=== PATIENT | male | born 1935 | race Caucasian/White ===

== ENCOUNTER 2019-11-21 21:35 | Inpatient (IN) | payer OTHER ==
[~2019-11-21] VITALS: Ht 175.3 cm; Wt 100.7 kg
[2019-11-21] MEDS ORDERED: DICL100G16 TP (22:09)
[2019-11-21] MEDS ORDERED: ACET-73 PO (22:09)
--- NOTE | 2019-11-21 23:00 | NUR ---
PT IS MEDICALLY CLEARED BY DR MONAHAN, CALL FOR BED DONE 141B
--- NOTE | 2019-11-21 23:01 | NUR ---
[address]:GD AND HARM TO OTHERS PT TO BE ADMITTED UNDER DR. FERNANDEZ/ SYED
--- NOTE | 2019-11-21 23:28 | NUR ---
BELONGINGS LIST DONE W/ ERLVN PT REFUSED TO DISCLOSE CONTENTS OF BAG KEPT CALM AND COMFORTABLE
--- NOTE | 2019-11-22 01:06 | NUR ---
HAND OFF AND SBAR GIVEN TO HARMAN
[2019-11-22] MEDS ORDERED: ACETAMINOPHEN 325 MG TABLET PO PRN (01:30)
[2019-11-22] MEDS ORDERED: BLOOD SUGAR DIAGNOSTIC 1 EACH STRIP VI ONE (01:30)
[2019-11-22] MEDS ORDERED: MAG HYDROX/AL HYDROX/SIMETH 30 ML LIQUID UDC PO PRN (01:30)
--- NOTE | 2019-11-22 01:38 | NUR ---
PT BELONGINGS ACCOUNTED FOR BY 2ER RNS TRANSPORTED VIA GURNEY [place] [facility]
[2019-11-22 01:40] VITALS: BP 144/78
[2019-11-22] MEDS: LORAZEPAM 1 MG TABLET PO PRN (02:14)
[2019-11-22] MEDS ORDERED: MAGNESIUM HYDROXIDE 30 ML LIQUID UDC PO PRN (02:15)
--- NOTE | 2019-11-22 02:49 | NUR ---
GPS: Admitted to unit earlier an 84 yr.old male under the care and supervision of / in fair condition. Pt. is on a 72 hour hold for GD. Pt.became aggressive towards staff and was disorganized and tangential,unable to provide a meaningful answer during interview,per hold. Pt.is AO x3. Pleasant,cooperative during admission process. Skin assessment done/inventory list completed. Unit rules explained. Pt's advisement /pt's rights handbook provided. Ativan 1mg given PO as requested by pt. Safety emphasized. Re-assured prn.
--- NOTE | 2019-11-22 07:14 | NUR ---
GPS/NSG Patient visible on unit this a.m. became aggressive towards staff was disorganized and tangential, staff attempted to go over pt's belongings one more time however patient became belligerent, paranoid, suspicious and confused, demanding things he stated were taken from him at the other hospital. Patient was redirected however patient would not follow direction, continued to escalate, staff was unable to effectively communicate with patient, he refused to comply with staff suggestions regarding belongings. Will continue to monitor for increased agitation and be alert for unit and staff safety.
[2019-11-22 07:30] VITALS: BP 147/78
[2019-11-22] MEDS: GABAPENTIN 100 MG CAPSULE PO SCH ×3 (10:21→17:47)
[2019-11-22] MEDS: OLANZAPINE 2.5 MG TABLET PO SCH ×2 (10:21→20:18)
--- NOTE | 2019-11-22 13:29 | NUR ---
Social Work/Initial Discharge Plan: Patient currently resides at home [address] [place] [address] [place] [address] with his Shalini Salomon ([phone]). Patient will return back home when ready for discharge. SW will continue to work with patient, family, and MD to ensure a safe and proper discharge plan.
[2019-11-22] MEDS ORDERED: INSULIN REGULAR, HUMAN 300 UNIT/3 ML VIAL SQ PRN (13:30)
[2019-11-22] MEDS ORDERED: DEXTROSE 50% 50 ML DISP.SYRIN IV PRN (13:30)
[2019-11-22 16:00] VITALS: BP 124/80
[2019-11-22 16:21] LABS: *BILIRUBIN,URIN NEGATIVE (NEGATIVE); *BLOOD, URINE NEGATIVE (NEGATIVE); *CLARITY,URINE CLEAR (CLEAR); *COLOR,URINE YELLOW (YELLOW); *KETONES,URINE NEGATIVE (NEGATIVE); *UROBILINOGEN,URINE 0.2 E.U./dl (NORMAL); LEUKOCYTE ESTERASE ,URINE NEGATIVE (NEGATIVE); NITRITE, URINE NEGATIVE (NEGATIVE); UGLUCOSE NEGATIVE (NEGATIVE)
[2019-11-22] MEDS: BLOOD SUGAR DIAGNOSTIC 1 EACH STRIP VI SCH ×2 (17:12→20:28)
[2019-11-22 21:29] VITALS: BP 143/86
[2019-11-22] MEDS: ZOLPIDEM 5 MG TABLET PO PRN (22:47)
[2019-11-23] MEDS: BLOOD SUGAR DIAGNOSTIC 1 EACH STRIP VI SCH ×5 (06:42→21:00)
[2019-11-23 07:30] VITALS: BP 130/66
[2019-11-23 07:41] LABS: EOSINOPHILS # (AUTO) 0.1 K/uL (0.0-0.7); EOSINOPHILS % (AUTO) 3.1 % (0.0-7.0); HEMATOCRIT 42.7 % (36.7-47.1); HEMOGLOBIN 14.2 g/dL (12.5-16.3); LYMPHOCYTES # (AUTO) 1.8 K/uL (20.0-40.0); MEAN CORPUSCULAR HEMOGLOBIN 32.4 uug (23.8-33.4); MEAN CORPUSCULAR HGB CONC 33 g/dL (32.5-36.3); MEAN CORPUSCULAR VOLUME 97.7 fL (73.0-96.2); MONOCYTES # (AUTO) 0.6 K/uL (2.0-10.0); MONOCYTES % (AUTO) 15.3 % (0.0-11.0); NEUTROPHILS # (AUTO) 1.4 K/uL (1.8-8.9); NEUTROPHILS % (AUTO) 35.6 % (38.5-71.5); PLATELET COUNT (AUTO) 154 K/uL (152-348); RED BLOOD CELL COUNT(AUTO) 4.37 MIL/uL (4.06-5.63)
[2019-11-23 07:43] LABS: EOSINOPHILS % (MANUAL) 3 % (0-8); MONOCYTES % (MANUAL) 15 % (2-10); NEUTROPHILS % (MANUAL) 37 % (42-75)
[2019-11-23 07:44] LABS: LYMPHOCYTES % (MANUAL) 45 % (20-40)
[2019-11-23] MEDS ORDERED: OLANZAPINE 2.5 MG TABLET PO SCH (09:00)
[2019-11-23] MEDS: GABAPENTIN 100 MG CAPSULE PO SCH ×3 (09:32→17:35)
[2019-11-23] MEDS: OLANZAPINE 5 MG TABLET PO SCH ×2 (09:34→20:04)
--- NOTE | 2019-11-23 10:42 | NUR ---
Social Work/UR Note: Oracle Erp Developer faxed patient's Consultation, History and Physical, Progress Note, Medication List and Labs to [employer] FAX# [phone]. Spoke with Lizzy ([phone]) to confirm fax information. Lizzy stated that this documentation writer will receive a fax back with authorization # information. Addendum: 11/23/19 at 1324 by TERI REYES Authorization for 7 days beginning 11/22/2019. REF# [id number]
--- NOTE | 2019-11-23 10:46 | NUR ---
Social Work/Firearms Report ([employer]): Radiology Manager completed and submitted a [employer] firearms report for 5150 grave disability certification. A copy of report has been placed in patient chart.
[2019-11-23 11:40] LABS: BILIRUBIN,TOTAL 0.9 mg/dL (0.2-1.0); CREATININE 0.9 mg/dL (0.6-1.3); MAGNESIUM 1.7 mg/dL (1.8-2.4); PHOSPHOROUS 3.1 mg/dL (2.5-4.9); POTASSIUM 4.1 mmol/L (3.5-5.1); TOTAL PROTEIN, SERUM 7.5 g/dL (6.4-8.2)
--- NOTE | 2019-11-23 13:30 | NUR ---
Gps/Overhead Irrigator Patient argumentative, about his hold, claimed he's being detained under illegal dold. Tries to redirect patient reviewed papers for his original hold, offered ativan 1 mg. po , difficulty redirecting patient, hangs out by the Nurses station, and continued questioning his hold.
[2019-11-23] MEDS: LORAZEPAM 1 MG TABLET PO PRN (13:38)
[2019-11-23] MEDS ORDERED: OLANZAPINE 10 MG VIAL IM ONE (14:15)
--- NOTE | 2019-11-23 14:58 | NUR ---
GPS: PATIENT SOMEWHAT AGITATED, PRE OCCUPIED ABOUT HIS HOLD, VERBALIZING THAT ITS ILLEGAL, PATIENT ARGUMENTATIVE WITH THE STAFF, UNABLE TO REDIRECT, PATIENT THEN ASK IF HE WILL CONTINUE HIS BEHAVIOR HE WILL NOT HAVE AN EARLIER DISCHARGE PLAN, PATIENT THEN DE ESCALATE, AND WENT BACK TO HIS ROOM
[2019-11-23 16:45] VITALS: BP 124/72
--- NOTE | 2019-11-23 18:02 | NUR ---
Gps/Crop Setting Out Machine Operator- Patient was able to talk to his in a calm manner, appeared to be pleasant with her on the phone, no yelling spells noted.
[2019-11-23 21:10] VITALS: BP 145/81
[2019-11-23] MEDS: ZOLPIDEM 5 MG TABLET PO PRN (22:51)
[2019-11-24] MEDS: LORAZEPAM 1 MG TABLET PO PRN (00:58)
[2019-11-24] MEDS: ACETAMINOPHEN ES 500 MG TABLET PO PRN ×2 (00:58→22:51)
[2019-11-24] MEDS: BLOOD SUGAR DIAGNOSTIC 1 EACH STRIP VI SCH ×4 (06:40→20:51)
[2019-11-24 07:30] VITALS: BP 149/96
[2019-11-24] MEDS: OLANZAPINE 5 MG TABLET PO SCH ×2 (08:56→20:51)
[2019-11-24] MEDS: GABAPENTIN 300 MG CAPSULE PO SCH ×3 (08:57→16:45)
[2019-11-24] MEDS ORDERED: GABAPENTIN 100 MG CAPSULE PO SCH (09:00)
--- NOTE | 2019-11-24 11:57 | NUR ---
Social Work/Discharge Planning: Soaking Room Operator spoke with patient's , Shalini Salomon ([phone]) regaridng arranging transportation for the patient for his discharge tomorrow morning. Shalini stated that she will arrange for a Taxi to fruit or nut picker the patient tomorrow at 11am, however, after speaking to her again today she stated that the service is not available. This brief writer gave Shalini another Taxi service ([phone]) and stated she would need to call and schedule and provide this brief writer with a confirmation.
[2019-11-24 15:15] VITALS: BP 119/72
[2019-11-24 20:34] VITALS: BP 137/72
--- NOTE | 2019-11-25 05:14 | NUR ---
PATIENT ASLEEP BUT EASILY AROUSABLE, PATIENT COMPLAIN OF BACK PAIN MEDICATED WITH TYLENOL ORDERED WITH EFFECTIVE RESULTS. PATIENT SLEPT MOST OF THE NIGHT, PATIENT HAS NO BEHAVIORAL PROBLEM NOTED, CONT TO MONITOR.
[2019-11-25] MEDS: BLOOD SUGAR DIAGNOSTIC 1 EACH STRIP VI SCH ×4 (06:41→20:22)
[2019-11-25 07:30] VITALS: BP 143/72
[2019-11-25] MEDS: OLANZAPINE 5 MG TABLET PO SCH ×2 (08:38→20:53)
[2019-11-25] MEDS: GABAPENTIN 300 MG CAPSULE PO SCH ×3 (08:38→16:44)
--- NOTE | 2019-11-25 10:30 | NUR ---
Gps/Wool Mixer-While reviewing discharged instructions, patient started to get loud argumentative, difficulty redirecting patient , persevirating on hevery sinle words in the discharged instructions, requesting to write down names of staffs in the unit. Copies of discharged instructions provided but wants more copies. Noted to get loud , > anxious, hyperverbal , argues, labile, threatening behavior.
--- NOTE | 2019-11-25 11:28 | NUR ---
PT TO BE DISCHARGED TODAY AT THIS TIME. PT'S FRIEND "[place]" IN LOBBY RIGHT NOW WAITING FOR PT DISCHARGE AT THIS TIME. SPOKE TO PT'S CUAUHTEMOC, SHE STATED CARBURETOR MECHANIC "[place]" WILL PROVIDE TRANSPORTATION, NOT TAXI SERVICE.
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
--- NOTE | 2019-11-25 11:55 | NUR ---
SPOKE TO PT'S CUAUHTEMOC, INFORMED OF DISCHARGE CANCELLATION.
--- NOTE | 2019-11-25 11:56 | NUR ---
FRIEND [place] LEFT UNIT AT THIS TIME.
[2019-11-25] MEDS ORDERED: OLANZAPINE 10 MG VIAL IM ONE (12:00)
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
--- NOTE | 2019-11-25 12:46 | NUR ---
Gps/Pharmaceutical Compounding Supervisor- Refused neurontin due at 1300, per patient" no more oral medications, will not take anything from you"
--- NOTE | 2019-11-25 12:46 | NUR ---
PT REFUSING MEDICATIONS AT THIS TIME. ALSO REFUSING LUNCH, STATING "I KNOW YOU GUYS ARE POISONING MY FOOD."
--- NOTE | 2019-11-25 13:45 | NUR ---
Gps/Bar Manager- Reoffered food tray , refused, claimed does not want to eat .
--- NOTE | 2019-11-25 14:06 | NUR ---
Gps/Grinder Brake Lining- Continue to monitor behavior, and needs.
[2019-11-25] MEDS ORDERED: MAGNESIUM OXIDE 400 MG TABLET PO ONE (15:30)
[2019-11-25 16:00] VITALS: BP 137/76
--- NOTE | 2019-11-25 16:30 | NUR ---
Gps/Follow Up Specialist- Patient was able to let staff check his blood sugar , accu-check 53, asymtomatic, offered 2 120 ml cranberry juice as requested, anayeli crackers also was given.
--- NOTE | 2019-11-25 16:34 | NUR ---
Gps/Optical Fabrication Technician- Patient requested sandwich , ok to give, R/T BS 53, also patient refused to eat lunch, paranoid, staff are putting something in his food.
--- NOTE | 2019-11-25 17:45 | NUR ---
Gp[s/Acrobatic Dancer- Phyllis , called was able to talked to patient, appeared calmer, and cooperative this pm. Refused to double check blood sugar.Patient ate sandwich , pudding and 2 juices(240 ml) cranberry
[2019-11-25] MEDS: LORAZEPAM 1 MG TABLET PO PRN (20:12)
[2019-11-25 21:16] VITALS: BP 164/80
--- NOTE | 2019-11-25 22:00 | NUR ---
received to care, watching tv with peers, pleasant upon approach. PRN ativan was given for anxiety, at 2011. he then took his routine medications. as of 2199, he appears to be asleep. no distress noted.
[2019-11-25 22:30] VITALS: BP 155/88
--- NOTE | 2019-11-26 06:00 | NUR ---
slept 4.75 hours total. continues to sleep. no distress noted.
[2019-11-26] MEDS: BLOOD SUGAR DIAGNOSTIC 1 EACH STRIP VI SCH (06:19)
[2019-11-26 07:30] VITALS: BP 141/70
[2019-11-26] MEDS: OLANZAPINE 5 MG TABLET PO SCH ×2 (08:54→21:00)
[2019-11-26] MEDS: GABAPENTIN 300 MG CAPSULE PO SCH ×3 (08:56→17:34)
[2019-11-26] MEDS: LORAZEPAM 1 MG TABLET PO PRN (12:07)
--- NOTE | 2019-11-26 14:30 | NUR ---
Gps/Manager English- Irritable, labile mood , but had been redirectable, claimed , he needs to get ready and his is coming to take him home. Reoriented patient ,no plan to be discharge today, and Psychiatrist to see him tomorrow, patient verbalized understanding
[2019-11-26 16:00] VITALS: BP 126/76
--- NOTE | 2019-11-26 18:55 | NUR ---
Gps/Undercover Operator- Per DISSOLVER OPERATOR when checking patient in the dinning room , he was not responding, no sign of any resp, distress, , b/p 56/30 HR 58, BS checked by EVANGELIST Montague 119 Rapid response was called , assisted to treasure-chair, reclined chair, lower ext. elevated, b/p rechecked 103/58 02 sat 92%. EKG was done, taken to ER to be evaluated. Patient awake, alert, no distress..
--- NOTE | 2019-11-26 18:55 | NUR ---
PT NOTED SITTING IN DINING ROOM CHAIR, UNRESPONSIVE AT THIS TIME. V/S ARE FOLLOWS: O2 SAT 96%, PULSE 58, BP 56/30, RESP 15, BLOOD SUGAR 119. RAPID RESPONSE CALLED AT THIS TIME.
--- NOTE | 2019-11-26 19:04 | NUR ---
PAGED [employer] GROUP AT THIS TIME. STATED WILL PAGE DR. REHMAN STAT.
--- NOTE | 2019-11-26 19:07 | NUR ---
PT REMAINS UNRESPONSIVE. TAKEN TO ROOM IN ZULEIMA CHAIR. BP NOW AT 103/58.
--- NOTE | 2019-11-26 19:10 | NUR ---
CALLED DR. LYNCH, LEFT MESSAGE TO CALL BACK.
--- NOTE | 2019-11-26 19:14 | NUR ---
DR. LYNCH CALLED BACK WITH ORDER TO SEND PT TO ER AT THIS TIME. RAPID RESPONSE CLEARED. DR. RANDHAWA PAGED, AWAITING CALL BACK.
--- NOTE | 2019-11-26 19:21 | NUR ---
DR. RANDHAWA CALLED BACK. NOTIFIED OF PT CONDITION. ORDERED TO CONTINUE HOLD.
--- NOTE | 2019-11-27 08:52 | NUR ---
Social Work/Discharge Note: Patient was discharged to Telemetry Unit with diagnosis for Syncope on 12/14/19. Patient resides at home [address] [place] [address] ([phone]). Patents Shalini Salomon ([phone]) is aware and agreeable of discharge plans. Patient is alert and oriented x3-4, denies suicidal and homicidal ideation, and was aware and agreeable with discharge plans. Patient presented with agitated mood and congruent affect. Upon discharge back home, patient will be following up with a new Psychiatrist Dr. Kirsten Rodgers [address], [place] [address] ([phone]) and has a follow up appointment scheduled on Thursday December 12, 2019 at 2:00pm. Patient will also be following up with his Primary Care Physician Dr. Jay Goldstein [address], [place] [address] ([phone]) and has a follow up appointment scheduled on November 10:30am. Patient was also provided with mental health resources including [facility] Crisis Line ([phone]) and the National Suicide Prevention Lifeline (428-895-7647).
[2019-12-14] MEDS ORDERED: TAMS-3 PO (11:55)
[2019-12-14] MEDS ORDERED: ATOR10TA PO (11:55)
[2019-12-14] MEDS ORDERED: FLUD0.1T3 PO (11:55)
[2019-12-14] MEDS ORDERED: GABA-534 PO (11:55)
[2019-12-14] MEDS ORDERED: FINA5TAB11 PO (11:55)
[2019-12-14] MEDS ORDERED: OLAN5TAB3 PO (11:55)
== END 2019-11-26 22:00 | disposition short-term general hospital (02) | DRG 885 ==
LOC: EDSEX 21:39 → ER 21:39 → GPS 11-22 01:18
PROVIDERS: ADMIT Psychiatry & Neurology Psychiatry; ATTEND Registered Nurse
DX: F31.64 Bipolar disorder, current episode mixed, severe, with psychotic features (principal); E44.1 Mild protein-calorie malnutrition; E66.9 Obesity, unspecified; E11.9 Type 2 diabetes mellitus without complications; I10 Essential (primary) hypertension; Z68.32 Body mass index [BMI] 32.0-32.9, adult; E83.42 Hypomagnesemia; R55 Syncope and collapse
CPT/HCPCS: 36415; 70030-TC; 83735; 84100; 85025; 87086; 93005; A4663; A9150; J1815; J2358

== ENCOUNTER 2019-11-26 19:16 | Inpatient (IN) | payer OTHER ==
[~2019-11-26] VITALS: Ht 175.3 cm; Wt 103.4 kg
--- NOTE | 2019-11-26 19:20 | NUR ---
Dr. Marcelino at bedside for MSE.
--- NOTE | 2019-11-26 19:39 | NUR ---
Xray at bedside.
[2019-11-26 19:42] LABS: BASOPHILS % (AUTO) 0.8 % (0.0-2.0); EOSINOPHILS # (AUTO) 0.1 K/uL (0.0-0.7); EOSINOPHILS % (AUTO) 2.4 % (0.0-7.0); HEMATOCRIT 42.5 % (36.7-47.1); HEMOGLOBIN 14.1 g/dL (12.5-16.3); LYMPHOCYTES # (AUTO) 1.3 K/uL (20.0-40.0); LYMPHOCYTES % (AUTO) 29.8 % (20.5-51.5); MEAN CORPUSCULAR HEMOGLOBIN 32.4 uug (23.8-33.4); MEAN CORPUSCULAR HGB CONC 33 g/dL (32.5-36.3); MONOCYTES # (AUTO) 0.6 K/uL (2.0-10.0); MONOCYTES % (AUTO) 13.5 % (0.0-11.0); NEUTROPHILS # (AUTO) 2.3 K/uL (1.8-8.9); NEUTROPHILS % (AUTO) 53.5 % (38.5-71.5); PLATELET COUNT (AUTO) 150 K/uL (152-348); RED BLOOD CELL COUNT(AUTO) 4.33 MIL/uL (4.06-5.63); WHITE BLOOD COUNT (AUTO) 4.3 K/uL (3.6-10.2)
[2019-11-26 19:51] LABS: CREATININE 1.1 mg/dL (0.6-1.3); POTASSIUM 4.9 mmol/L (3.5-5.1)
--- NOTE | 2019-11-26 19:56 | NUR ---
Pt out of ER for CT.
[2019-11-26 20:04] LABS: BILIRUBIN,DIRECT 0.1 mg/dL (0.0-0.2); BILIRUBIN,TOTAL 0.4 mg/dL (0.2-1.0); TOTAL PROTEIN, SERUM 7.9 g/dL (6.4-8.2)
--- NOTE | 2019-11-26 20:20 | NUR ---
Pt back to ER from CT.
--- NOTE | 2019-11-26 20:41 | NUR ---
Pt provided urine sample, sent to lab.
[2019-11-26 20:58] LABS: *BILIRUBIN,URIN NEGATIVE (NEGATIVE); *CLARITY,URINE CLEAR (CLEAR); *COLOR,URINE YELLOW (YELLOW); *KETONES,URINE NEGATIVE (NEGATIVE); *UROBILINOGEN,URINE 0.2 E.U./dl (NORMAL); LEUKOCYTE ESTERASE ,URINE NEGATIVE (NEGATIVE); NITRITE, URINE NEGATIVE (NEGATIVE); UGLUCOSE NEGATIVE (NEGATIVE)
[2019-11-26 21:01] LABS: *BLOOD, URINE NEGATIVE (NEGATIVE)
--- NOTE | 2019-11-26 22:04 | NUR ---
Called [facility] to page Dr. Robledo.
--- NOTE | 2019-11-26 22:09 | NUR ---
Dr. Marcelino on panel call with Dr. Robledo. Patient accepted for admission to [facility], diagnosis: syncope.
--- NOTE | 2019-11-26 22:15 | NUR ---
Report given to Mayuri BLANCA Tele.
[2019-11-26] MEDS ORDERED: ONDANSETRON 4 MG/2 ML VIAL IV PRN (22:30)
[2019-11-26] MEDS ORDERED: Z GUARD REMEDY PASTE 57 GM TUBE TOP PRN (22:30)
[2019-11-26] MEDS ORDERED: IV NS 1000 ML 1,000 ML IV ONE (22:30)
[2019-11-26] MEDS ORDERED: MAGNESIUM HYDROXIDE 30 ML LIQUID UDC PO PRN (22:30)
--- NOTE | 2019-11-26 22:45 | NUR ---
PATIENT IS AN 84 YEAR OLD MALE ADMITTED TO TELEMETRY FROM EMERGENCY DEPT. WITH DIAGNOSIS OF HYPOTENSION. AO X 2. BLOOD PRESSURE UPON ADMISSION WAS 96/69. PATIENT IN BED WITH FALL AND SAFETY PRECAUTIONS IN PLACE. IV IN RIGHT HAND FLUSHING, PATENT, AND INTACT. SITTER AT BEDSIDE. ATRIAL FLUTTER ON THE TELE MONITOR WITH HEART RATE IN THE 70s. WILL CONTINUE TO MONITOR PATIENT.
[2019-11-26 23:03] VITALS: BP 96/69
[2019-11-27 00:40] VITALS: BP 129/85
--- NOTE | 2019-11-27 00:47 | NUR ---
PATIENT IS AGITATED AND BECOMING AGGRESSIVE WITH STAFF. PATIENT REORIENTED MULTIPLE TIMES BUT UNSUCCESSFUL. CONTACTED DR. AUGUSTIN WHO GAVE ORDER FOR ATIVAN 0.5MG Q6 HRS.
[2019-11-27] MEDS: LORAZEPAM 2 MG/1 ML VIAL IV PRN ×2 (01:04→22:53)
[2019-11-27 06:49] LABS: CREATININE 0.9 mg/dL (0.6-1.3); MAGNESIUM 1.7 mg/dL (1.8-2.4); PHOSPHOROUS 3.6 mg/dL (2.5-4.9); POTASSIUM 4.2 mmol/L (3.5-5.1)
[2019-11-27 06:55] LABS: BASOPHILS % (AUTO) 0.6 % (0.0-2.0); EOSINOPHILS # (AUTO) 0.1 K/uL (0.0-0.7); EOSINOPHILS % (AUTO) 2.3 % (0.0-7.0); LYMPHOCYTES # (AUTO) 1.4 K/uL (20.0-40.0); MEAN CORPUSCULAR HEMOGLOBIN 32.6 uug (23.8-33.4); MEAN CORPUSCULAR HGB CONC 33 g/dL (32.5-36.3); MONOCYTES # (AUTO) 0.7 K/uL (2.0-10.0); MONOCYTES % (AUTO) 15.4 % (0.0-11.0); NEUTROPHILS # (AUTO) 2.1 K/uL (1.8-8.9); NEUTROPHILS % (AUTO) 48.7 % (38.5-71.5); PLATELET COUNT (AUTO) 156 K/uL (152-348); RED BLOOD CELL COUNT(AUTO) 4.29 MIL/uL (4.06-5.63); WHITE BLOOD COUNT (AUTO) 4.3 K/uL (3.6-10.2)
--- NOTE | 2019-11-27 07:30 | NUR ---
Patient resting in bed comfortably with no signs of distress patient with 1:1 sitter; patient will continue to be monitored through out shift.
--- NOTE | 2019-11-27 08:21 | NUR ---
Social Work/Discharge Note: Patient was discharged back home on Wednesday11/25/[address] [place] [address] [place] [address] ([phone]). Patents Shalini Salomon ([phone]) is aware and agreeable with discharge plans and will be providing with Taxi transportation of her own and will be scheduling it for milk pickup truck driver at 11:00am. Patient is alert and oriented x4, denies suicidal and homicidal ideation, and is aware and agreeable with discharge plan. Patient presents with normal mood and congruent affect. Patient will be following up with a new Psychiatrist Dr. Kirsten Rodgers [address], [place] [address] ([phone]) and has a follow up appointment scheduled on Thursday December 12, 2019 at 2:00pm. Patient will also be following up with his Primary Care Physician Dr. Jay Goldstein [address], [place] [address] ([phone]) and has a follow up appointment scheduled on November 10:30am. Patient was also provided with mental health resources including [facility] Crisis Line ([phone]) and the National Suicide Prevention Lifeline (010-089-9081). Addendum: 11/27/19 at 0823 by TERI REYES Disregard Discharge Note
[2019-11-27 08:41] VITALS: BP 140/81
[2019-11-27] MEDS ORDERED: DEXTROSE 50% 50 ML DISP.SYRIN IV PRN (10:15)
[2019-11-27] MEDS: MAGNESIUM SULFATE/D5W 100 ML IV SCH ×2 (10:26→11:56)
[2019-11-27 11:34] LABS: LYMPHOCYTES % (MANUAL) 33 % (20-40); MONOCYTES % (MANUAL) 15 % (2-10); MYELOCYTES % 1 % (0-0); NEUTROPHILS % (MANUAL) 51 % (42-75)
[2019-11-27 11:45] VITALS: BP 113/71
[2019-11-27] MEDS: BLOOD SUGAR DIAGNOSTIC 1 EACH STRIP VI SCH ×3 (11:57→21:27)
[2019-11-27] MEDS: GABAPENTIN 100 MG CAPSULE PO SCH ×2 (13:11→17:44)
[2019-11-27 16:14] VITALS: BP 130/76
--- NOTE | 2019-11-27 19:15 | NUR ---
Patient with 1:1 sitter through out shift ; patient medication compliant ; patient with random bouts of mild anger but patient redirected; patient with stable vital signs. Report given to oncoming nurse.
[2019-11-27 20:55] VITALS: BP 139/78
[2019-11-27] MEDS: OLANZAPINE 5 MG TABLET PO SCH (21:27)
[2019-11-27] MEDS: ATORVASTATIN 10 MG TABLET PO SCH (21:27)
--- NOTE | 2019-11-27 22:28 | NUR ---
PATIENT HAS EPISODE OF RAPID V TACH 11 BEATS BUT UNSUSTAINABLE. PATIENT ALERT AWAKE, ASYMPTOMATIC, ASSISTED TO THE TOILET FOR BLADDER ELIMINATIONS. PATIENT HAS NO COMPLAIN OF CHEST PAIN, DIZZINESS, CONT TO MONITOR.
--- NOTE | 2019-11-27 23:32 | NUR ---
PATIENT HAS EPISODE OF ANXIETY WITH AGITATION, WANTS TO REARRANGE FURNITURE, REDIRECT PATIENT BUT NOT EFFECTIVE, OFFER FOOD AND JUICE TO DISTRACT PATIENT BUT NOT EFFECTIVE, ASSISTED PATIENT FOR BLADDER ELIMINATION. PATIENT WAS GIVEN ATIVAN IV ORDERED WITH EFFECTIVE RESULTS, PATIENT SEATS IN CHAIR QUITE, AND WATCHING TV, PATIENT HAS NO S/S OF ADVERSE REACTION FROM ATIVAN. CONT ON 1;1 SITTER FOR SAFETY.
[2019-11-28] VITALS (8 sets, daily range): BP systolic 130–154; BP diastolic 74–88
[2019-11-28] MEDS: HYDROCODONE/APAP 5-325MG TABLET PO PRN (03:36)
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
--- NOTE | 2019-11-28 06:15 | NUR ---
PAGED DR. FERNANDEZ TO NOTIFY MD REGARDING PATIENT INCREASED AGITATION, RESISTIVE TO CARE, YELLS AND THREATENING SITTER AND STAFF. PATIENT LISTEN AND FOLLOW TO MALE STAFF ONLY, REFUSED VITAL SIGNS, BLOOD SUGAR CHECK. PATIENT REFUSED TO BE VISUALLY CHECK, CONT 1;1 SITTER. UNABLE TO GIVE IV PRN ATIVAN DUE TO RESISTIVE TO CARE.
[2019-11-28 06:57] LABS: CARBON DIOXIDE 28 mmol/L (21-32); CHLORIDE 106 mmol/L (98-107); CREATININE 0.9 mg/dL (0.6-1.3); GLUCOSE 96 mg/dL (74-106); MAGNESIUM 1.8 mg/dL (1.8-2.4); PHOSPHOROUS 3.6 mg/dL (2.5-4.9); POTASSIUM 5.2 mmol/L (3.5-5.1); UREA NITROGEN, BLOOD 19 mg/dL (7-18)
[2019-11-28] MEDS: BLOOD SUGAR DIAGNOSTIC 1 EACH STRIP VI SCH ×5 (07:30→20:30)
--- NOTE | 2019-11-28 07:33 | NUR ---
patient very agitated and loud, verbally abusive and want to go out. called john lau.
--- NOTE | 2019-11-28 07:38 | NUR ---
patient refused blood sugar testing, gets agitated, asked lab staff for help but refused. endorsed to next shift.
--- NOTE | 2019-11-28 08:00 | NUR ---
CODE MARTINEZ CALLED FOR SEVERE AGITATION AND TRYING TO GET OUT OF ROOM, VERBALLY ABUSIVE
[2019-11-28] MEDS: LORAZEPAM 2 MG/1 ML VIAL IV PRN ×2 (08:01→22:53)
[2019-11-28] MEDS: GABAPENTIN 100 MG CAPSULE PO SCH (08:01)
[2019-11-28] MEDS: OLANZAPINE 5 MG TABLET PO SCH ×3 (08:01→16:57)
--- NOTE | 2019-11-28 08:01 | NUR ---
PRN ATIVAN GIVEN AND OBSERVED
[2019-11-28] MEDS ORDERED: OLANZAPINE 5 MG TABLET PO SCH (09:15)
[2019-11-28] MEDS: GABAPENTIN 300 MG CAPSULE PO SCH ×2 (12:01→16:57)
[2019-11-28] MEDS ORDERED: GABAPENTIN 100 MG CAPSULE PO SCH (13:00)
--- NOTE | 2019-11-28 14:00 | NUR ---
PATIENT REMAINS UNDER CONTROL FAR BEHAVIOR. 1:1 SITTER AT BEDSIDE SR ON MONITOR
[2019-11-28 15:35] LABS: BASOPHILS # (AUTO) 0.1 K/uL (0.0-8.0); BASOPHILS % (AUTO) 1.3 % (0.0-2.0); EOSINOPHILS # (AUTO) 0.1 K/uL (0.0-0.7); EOSINOPHILS % (AUTO) 3.2 % (0.0-7.0); HEMOGLOBIN 13.8 g/dL (12.5-16.3); LYMPHOCYTES # (AUTO) 1.2 K/uL (20.0-40.0); LYMPHOCYTES % (AUTO) 29.1 % (20.5-51.5); MEAN CORPUSCULAR HEMOGLOBIN 32.7 uug (23.8-33.4); MEAN CORPUSCULAR HGB CONC 34 g/dL (32.5-36.3); MEAN CORPUSCULAR VOLUME 97.1 fL (73.0-96.2); MONOCYTES # (AUTO) 0.8 K/uL (2.0-10.0); NEUTROPHILS % (AUTO) 47.4 % (38.5-71.5); PLATELET COUNT (AUTO) 156 K/uL (152-348); RED BLOOD CELL COUNT(AUTO) 4.23 MIL/uL (4.06-5.63); WHITE BLOOD COUNT (AUTO) 4.2 K/uL (3.6-10.2)
[2019-11-28 16:37] LABS: BAND % (MANUAL) 1 % (0-10); EOSINOPHILS % (MANUAL) 2 % (0-8); LYMPHOCYTES % (MANUAL) 31 % (20-40); MONOCYTES % (MANUAL) 15 % (2-10); NEUTROPHILS % (MANUAL) 51 % (42-75)
--- NOTE | 2019-11-28 17:55 | NUR ---
CONTINUE 5250 WITH 1;1 SITTER FOR GRAVELY DISABLED. PLAN DC TO MHU WHEN STABLE
[2019-11-28] MEDS: RIVAROXABAN 10 MG TABLET PO SCH (18:54)
--- NOTE | 2019-11-28 19:45 | NUR ---
RECEIVED PATIENT AWAKE IN BED. AO X 1-2. IV IN LEFT HAND 20G FLUSHING, PATENT, AND INTACT. 1:1 SITTER AT THE BEDSIDE. PATIENT CURRENTLY COOPERATIVE. NO SIGNS OF ACUTE DISTRESS. NO SHORTNESS OF BREATH NOTED. ATRIAL FLUTTER ON THE TELE MONITOR. SAFETY/ FALL PRECAUTIONS IN PLACE. WILL CONTINUE TO MONITOR APPROPRIATELY.
[2019-11-28] MEDS: ATORVASTATIN 10 MG TABLET PO SCH (20:12)
[2019-11-29] VITALS (9 sets, daily range): BP systolic 65–142; BP diastolic 28–80
[2019-11-29] MEDS: LORAZEPAM 2 MG/1 ML VIAL IV PRN ×2 (04:43→21:25)
--- NOTE | 2019-11-29 06:16 | NUR ---
PATIENT SLEPT MINIMALLY THROUGHOUT THE NIGHT. 1:1 SITTER AT THE BEDSIDE. NO ACUTE CHANGE IN PATIENT CONDITION. VITAL SIGNS WITHIN NORMAL LIMITS. TOLERATED MEDICATIONS. ATRIAL FLUTTER ON THE TELE MONITOR WITH HEART RATE IN THE HIGH 50'S.
[2019-11-29] MEDS: BLOOD SUGAR DIAGNOSTIC 1 EACH STRIP VI SCH ×4 (06:42→21:18)
--- NOTE | 2019-11-29 08:00 | NUR ---
RECEIVED PATIENT IN BED RESTING WITH 1:1 SITTER AT BEDSIDE FOR SAFETY. NO SOB NOTED AT THIS TIME, NO C/O PAIN NOTED AT THIS TIME. IV INTACT AND PATENT. SAFETY AND COMFORT PROVIDED AT ALL TIMES. WILL CONTINUE TO MONITOR
[2019-11-29] MEDS: OLANZAPINE 5 MG TABLET PO SCH ×3 (09:19→17:21)
[2019-11-29] MEDS: LISINOPRIL 5 MG TABLET PO SCH (09:19)
[2019-11-29] MEDS: GABAPENTIN 300 MG CAPSULE PO SCH ×3 (09:19→17:21)
--- NOTE | 2019-11-29 15:00 | NUR ---
PATIENT RECEIVED FROM ROBERT RN AND REPORT RECEIVED. PATIENT IN STABLE CONDITION UPON ARRIVAL. AOX1 TO SELF. ABLE TO AMBULATE WITH ASSIST. PATIENT WAS WALKED TO THE ACTIVITY ROOM WHERE HE SAT DOWN ON A CHAIR AND WHEN THE CORRECTIONS CADET CAME TO ASSESS HIS BLOOD PRESSURE PATIENT BECAME UNRESPONSIVE TO NAME, TOUCH OR STERNAL RUB. B/P AT THAT TIME WAS 65/32 WITH HR 47. BS WAS ASSESSED AND IT WAS 111. ESOL TEACHER WAS CALLED AND AARON THE KENNEL TECHNICIAN WAS MADE AWARE OF THE SITUATION. PLAN IS TO TRANSFER BACK TO M/S UNIT WITH CORRUGATOR OPERATOR.
--- NOTE | 2019-11-29 16:19 | NUR ---
Rapid response called: patient became unresponsive, hypotensive and bradycardic. Notified Aiyana Michele NP. Cancel discharge, continue care in telemetry unit.
--- NOTE | 2019-11-29 17:00 | NUR ---
patient admitted back to telemetry from MHU for further eval.
[2019-11-29] MEDS: RIVAROXABAN 10 MG TABLET PO SCH (17:23)
--- NOTE | 2019-11-29 18:28 | NUR ---
Patient in bed with HOB elevated with 1:1 sitter. No sob noted. No c/o pain at this time. Safety and comfort provided. will continue to monitor
[2019-11-29] MEDS: ATORVASTATIN 10 MG TABLET PO SCH (20:49)
[2019-11-29] MEDS: ACETAMINOPHEN 325 MG TABLET PO PRN (21:43)
[2019-11-30 00:29] VITALS: BP 133/76
[2019-11-30 04:00] VITALS: BP 125/71
[2019-11-30] MEDS: HYDROCODONE/APAP 5-325MG TABLET PO PRN (06:10)
[2019-11-30 06:23] LABS: CREATININE 0.8 mg/dL (0.6-1.3); MAGNESIUM 1.8 mg/dL (1.8-2.4); PHOSPHOROUS 3.7 mg/dL (2.5-4.9); POTASSIUM 4.1 mmol/L (3.5-5.1)
[2019-11-30 06:29] LABS: BASOPHILS % (AUTO) 0.4 % (0.0-2.0); EOSINOPHILS # (AUTO) 0.1 K/uL (0.0-0.7); EOSINOPHILS % (AUTO) 2.8 % (0.0-7.0); HEMOGLOBIN 14.1 g/dL (12.5-16.3); LYMPHOCYTES # (AUTO) 1.5 K/uL (20.0-40.0); LYMPHOCYTES % (AUTO) 38.9 % (20.5-51.5); MEAN CORPUSCULAR HEMOGLOBIN 32.1 uug (23.8-33.4); MEAN CORPUSCULAR HGB CONC 33 g/dL (32.5-36.3); MEAN CORPUSCULAR VOLUME 98.1 fL (73.0-96.2); MONOCYTES # (AUTO) 0.6 K/uL (2.0-10.0); MONOCYTES % (AUTO) 14.6 % (0.0-11.0); NEUTROPHILS # (AUTO) 1.7 K/uL (1.8-8.9); NEUTROPHILS % (AUTO) 43.3 % (38.5-71.5); PLATELET COUNT (AUTO) 159 K/uL (152-348); RED BLOOD CELL COUNT(AUTO) 4.39 MIL/uL (4.06-5.63); WHITE BLOOD COUNT (AUTO) 3.8 K/uL (3.6-10.2)
[2019-11-30] MEDS: BLOOD SUGAR DIAGNOSTIC 1 EACH STRIP VI SCH ×4 (06:35→20:15)
--- NOTE | 2019-11-30 06:51 | NUR ---
Patient slept for 6hrs. A&Ox1 noted w/ disorganized thoughts and hard to redirect. Cont on 5250 hold w/ 1:1 sitter for safety. Patient was given PRN Ativan 0.5mg IV last night d/t agitation. Safety measures observed. All needs attended. Will endorse accordingly
--- NOTE | 2019-11-30 07:40 | NUR ---
RECEIVED PATIENT IN BED AWAKE, AOX1. 1:1 SITTER AT BED. NO SIGNS OF DISTRESS AT THIS TIME. PATIENT DENIES PAIN AT THIS TIME. RIGHT HAND PERIPHERAL LINE INTACT AND FLUSHED. ALL NEEDS MET AT THIS TIME. SAFETY AND FALL PRECAUTIONS IN PLACE CALL LIGHT IN REACH. BED IN LOW AND LOCKED POSITION. WILL CONTINUE TO MONITOR.
[2019-11-30 07:52] VITALS: BP 145/72
[2019-11-30] MEDS: GABAPENTIN 300 MG CAPSULE PO SCH ×3 (08:13→17:07)
[2019-11-30] MEDS: LISINOPRIL 5 MG TABLET PO SCH (08:13)
[2019-11-30] MEDS: OLANZAPINE 5 MG TABLET PO SCH ×3 (08:14→17:07)
[2019-11-30 11:20] VITALS: BP 113/69
[2019-11-30 15:45] VITALS: BP 121/66
[2019-11-30] MEDS: RIVAROXABAN 10 MG TABLET PO SCH (17:08)
--- NOTE | 2019-11-30 19:46 | NUR ---
PATIENT IN BED AWAKE, AOX1. 1:1 SITTER AT BED. NO SIGNS OF DISTRESS AT THIS TIME. PATIENT DENIES PAIN AT THIS TIME. THERE IS INCREASED AGITATION AND PATIENT IS TRYING TO GET OUT OF BED BUT SITTER ABLE TO REDIRECT. RIGHT HAND PERIPHERAL LINE INTACT AND FLUSHED. ALL NEEDS MET AT THIS TIME. SAFETY AND FALL PRECAUTIONS IN PLACE CALL LIGHT IN REACH. BED IN LOW AND LOCKED POSITION. WILL CONTINUE TO MONITOR.
[2019-11-30] MEDS: LORAZEPAM 2 MG/1 ML VIAL IV PRN (19:52)
[2019-11-30 20:00] VITALS: BP 139/97
[2019-11-30] MEDS: ACETAMINOPHEN 325 MG TABLET PO PRN (20:07)
[2019-11-30] MEDS: ATORVASTATIN 10 MG TABLET PO SCH (20:07)
[2019-11-30] MEDS ORDERED: LORAZEPAM 2 MG/1 ML VIAL IV ONE (22:15)
--- NOTE | 2019-11-30 22:50 | NUR ---
Patient noted w/ episode of agitation and wants to go home. Patient is A&Ox1 w/ disorganized thoughts and hard to re-direct. w/ 1:1 sitter for safety. PRN Ativan 0.5mg IV given around 1951 but w/ no effect. Called non destructive testing technician, Lynsey LOGAN w/ n.o for Ativan 1mg IV x 1 dose. Will continue to monitor patient
[2019-12-01] VITALS: BP 107/67
[2019-12-01 04:00] VITALS: BP 137/65
[2019-12-01] MEDS: LORAZEPAM 2 MG/1 ML VIAL IV PRN (05:38)
--- NOTE | 2019-12-01 06:35 | NUR ---
Patient slept on and off. Noted w/ severe agitation and disorganized thoughts. PRN Ativan 0.5mg IV given x 2 this shift. Cont w/ 1:1 sitter for safety. All needs attended. Will endorse accordingly
[2019-12-01] MEDS: BLOOD SUGAR DIAGNOSTIC 1 EACH STRIP VI SCH ×4 (06:48→21:31)
[2019-12-01 07:30] VITALS: BP 138/76
--- NOTE | 2019-12-01 07:30 | NUR ---
Patient in Bed, awake and verbally responsive with confusion. no signs of distress noted. No SOB. No complain of Pain or discomfort. patient with 1:1 sitter for safety. Will continue to monitor.
[2019-12-01] MEDS: GABAPENTIN 300 MG CAPSULE PO SCH ×3 (08:03→17:00)
[2019-12-01] MEDS: OLANZAPINE 5 MG TABLET PO SCH ×3 (08:04→21:00)
[2019-12-01] MEDS: LISINOPRIL 5 MG TABLET PO SCH (08:04)
[2019-12-01] MEDS: HYDROCODONE/APAP 5-325MG TABLET PO PRN (08:04)
[2019-12-01] MEDS ORDERED: OLANZAPINE 5 MG TABLET PO SCH (08:30)
[2019-12-01] MEDS ORDERED: OLANZAPINE 5 MG TABLET PO ONE (09:15)
[2019-12-01] MEDS ORDERED: IV NS 1000 ML 1,000 ML IV STA (14:40)
--- NOTE | 2019-12-01 14:50 | NUR ---
Patient sitting on the chair, unable to wake him up. Vital sign 88/56 P 60 R 20 T 98.1. Paged rapid response. Assisted patient to Bed, Still not responding. Seen and examined by DESMOND jaimes with New Order of [place] Bolus. Will continue to monitor.
[2019-12-01 15:00] VITALS: BP 114/48
--- NOTE | 2019-12-01 15:15 | NUR ---
Seen and examined by Dr. Ordonez, patient in Bed, arousable to Pain stimuli, current Vital signs BP 94/59 P 71 R 20 T 98.1. Will continue to monitor.
[2019-12-01] MEDS: FLUDROCORTISONE ACETATE 0.1 MG TABLET PO SCH (17:00)
[2019-12-01] MEDS: RIVAROXABAN 10 MG TABLET PO SCH (18:00)
--- NOTE | 2019-12-01 18:00 | NUR ---
Patient in Bed, still asleep. No signs of distress noted. No SOB. No signs of pain or discomfort. DESMOND jaimes is aware that patient still sleeping but arousable to pain stimuli. DESMOND jaimes Ordered CT of Head and carotid with contrast, called Shalini and got a Telephone consent with 1RN witness. Will endorse to Oncoming Nurse.
--- NOTE | 2019-12-01 19:30 | NUR ---
Received patient in bed with 1:1 sitter at bedside. Patient is resting, able to arouse, but patient just moans, does not open eyes. Vitals WNL. Heplock on the right hand is intact and patent. Safety measures initiated. Will continue to monitor.
[2019-12-01 20:09] VITALS: BP 133/68
[2019-12-01] MEDS: ATORVASTATIN 10 MG TABLET PO SCH (21:00)
[2019-12-01] MEDS ORDERED: IOHEXOL 350 100 ML INFUS..BTL ONE (21:30)
[2019-12-01] MEDS ORDERED: SWABABLE VALVE TRANSFER SET EA MC ONE (21:30)
[2019-12-01] MEDS ORDERED: IV NORMAL SALINE 250 ML IV ONE (21:30)
--- NOTE | 2019-12-01 21:39 | NUR ---
Patient left for CTA in stable condition with 1:1 sitter. IV #18 on left forearm is intact and patent.
--- NOTE | 2019-12-01 22:25 | NUR ---
IV infiltrated before procedure started, inserted new IV on the right forearm #20 gauge with good back flow.
--- NOTE | 2019-12-01 22:35 | NUR ---
Patient returned from CT in stable condition. Held patients medications due to patient being lethargic. Patient mumbling in sleep but still does not open eyes, patient may aspirate. Will continue to monitor.
[2019-12-02 00:21] VITALS: BP 124/72
[2019-12-02] MEDS: LORAZEPAM 2 MG/1 ML VIAL IV PRN (00:29)
[2019-12-02] MEDS: HYDROCODONE/APAP 5-325MG TABLET PO PRN ×2 (01:45→05:58)
[2019-12-02] MEDS: ACETAMINOPHEN 325 MG TABLET PO PRN (04:05)
[2019-12-02 05:20] VITALS: BP 149/85
--- NOTE | 2019-12-02 06:07 | NUR ---
Patient has been trying to get out of bed, helped patient to restroom. Frequent redirection needed. Patient complaining of abdominal discomfort. Patient was able to urinate but very little. Performed bladder scanner with 840cc showing. Tried to insert straight cath x2 and there was resistance also noted bleeding. Informed Kt Chambers IT PROGRAMMER ANALYST and he said to give some [place] to try and relax him and try again in an hour to insert a Saunders catheter. Will endorse to next shift.
[2019-12-02] MEDS: BLOOD SUGAR DIAGNOSTIC 1 EACH STRIP VI SCH ×4 (06:46→20:52)
[2019-12-02 07:30] VITALS: BP 163/95
[2019-12-02 07:33] LABS: BASOPHILS % (AUTO) 0.3 % (0.0-2.0); EOSINOPHILS # (AUTO) 0.1 K/uL (0.0-0.7); EOSINOPHILS % (AUTO) 1.3 % (0.0-7.0); LYMPHOCYTES # (AUTO) 0.8 K/uL (20.0-40.0); LYMPHOCYTES % (AUTO) 12.2 % (20.5-51.5); MEAN CORPUSCULAR HEMOGLOBIN 32.5 uug (23.8-33.4); MEAN CORPUSCULAR HGB CONC 33 g/dL (32.5-36.3); MEAN CORPUSCULAR VOLUME 97.6 fL (73.0-96.2); MONOCYTES # (AUTO) 0.8 K/uL (2.0-10.0); MONOCYTES % (AUTO) 12.2 % (0.0-11.0); NEUTROPHILS # (AUTO) 4.8 K/uL (1.8-8.9); PLATELET COUNT (AUTO) 151 K/uL (152-348); RED BLOOD CELL COUNT(AUTO) 4.61 MIL/uL (4.06-5.63); WHITE BLOOD COUNT (AUTO) 6.5 K/uL (3.6-10.2)
[2019-12-02 07:40] LABS: CREATININE 1.3 mg/dL (0.6-1.3); MAGNESIUM 1.6 mg/dL (1.8-2.4); POTASSIUM 4.8 mmol/L (3.5-5.1)
[2019-12-02] MEDS: FLUDROCORTISONE ACETATE 0.1 MG TABLET PO SCH ×2 (08:48→17:00)
[2019-12-02] MEDS: GABAPENTIN 300 MG CAPSULE PO SCH ×3 (08:48→17:00)
[2019-12-02] MEDS: OLANZAPINE 5 MG TABLET PO SCH ×2 (08:49→21:57)
--- NOTE | 2019-12-02 12:00 | NUR ---
#16 Saunders catheter placed with huge urine output--1200cc hematuria noted. 1400--urine continues to drain tea colored urine. no clots noted.
[2019-12-02 14:53] VITALS: BP 115/67
[2019-12-02] MEDS: MAGNESIUM SULFATE/D5W 100 ML IV SCH ×2 (15:11→16:19)
--- NOTE | 2019-12-02 19:30 | NUR ---
Received patient resting in bed, easily to arouse, but sleepy. 1:1 sitter at bedside for safety. Patient has Saunders intact draining well, urine is tea colored. Heplocks on the right hand and forearm are intact and patent. Safety measures initiated. Bed is low and locked, will continue to monitor.
[2019-12-02 20:17] VITALS: BP 125/67
[2019-12-02] MEDS: ATORVASTATIN 10 MG TABLET PO SCH (21:57)
[2019-12-03 00:42] VITALS: BP 140/88
[2019-12-03 04:50] VITALS: BP 131/78
--- NOTE | 2019-12-03 05:31 | NUR ---
Patient slept well, no episodes of agitation. Patient redirected as needed. Saunders catheter draining well. Medications given as ordered and tolerated well. Safety measures given.
[2019-12-03] MEDS: BLOOD SUGAR DIAGNOSTIC 1 EACH STRIP VI SCH ×4 (06:46→21:26)
[2019-12-03 08:00] VITALS: BP 127/75
[2019-12-03 08:09] LABS: BASOPHILS % (AUTO) 0.5 % (0.0-2.0); EOSINOPHILS # (AUTO) 0.2 K/uL (0.0-0.7); EOSINOPHILS % (AUTO) 3.3 % (0.0-7.0); LYMPHOCYTES # (AUTO) 1.3 K/uL (20.0-40.0); LYMPHOCYTES % (AUTO) 22.4 % (20.5-51.5); MEAN CORPUSCULAR HEMOGLOBIN 32.8 uug (23.8-33.4); MEAN CORPUSCULAR HGB CONC 33 g/dL (32.5-36.3); MEAN CORPUSCULAR VOLUME 98.1 fL (73.0-96.2); MONOCYTES # (AUTO) 0.7 K/uL (2.0-10.0); MONOCYTES % (AUTO) 11.7 % (0.0-11.0); NEUTROPHILS # (AUTO) 3.7 K/uL (1.8-8.9); NEUTROPHILS % (AUTO) 62.1 % (38.5-71.5); PLATELET COUNT (AUTO) 138 K/uL (152-348); RED BLOOD CELL COUNT(AUTO) 4.28 MIL/uL (4.06-5.63); WHITE BLOOD COUNT (AUTO) 5.9 K/uL (3.6-10.2)
[2019-12-03 08:21] LABS: MAGNESIUM 1.9 mg/dL (1.8-2.4); PHOSPHOROUS 3.6 mg/dL (2.5-4.9); POTASSIUM 5.1 mmol/L (3.5-5.1)
[2019-12-03] MEDS: GABAPENTIN 300 MG CAPSULE PO SCH ×3 (08:40→16:21)
[2019-12-03] MEDS: FLUDROCORTISONE ACETATE 0.1 MG TABLET PO SCH ×2 (08:40→16:13)
[2019-12-03] MEDS: OLANZAPINE 5 MG TABLET PO SCH ×2 (08:40→21:13)
--- NOTE | 2019-12-03 11:48 | NUR ---
alert, oriented, and very appropriate, sitter at bedside. no complaint of discomfort, nor dizziness. bp right 136/76, with HR 106, aflutter still. per cardiology recommendation, XARELTO should resume, brought to the INSULATOR TESTER's attention, on round. ileana lucero, 500cc, per patient's report, at home , has been taking finasteride.
[2019-12-03] MEDS: FINASTERIDE 5 MG TABLET PO SCH (14:51)
--- NOTE | 2019-12-03 15:05 | NUR ---
alert enough to ask using the urinal, with max assistance, two personnel each on the side, helped him to get up, and urinal ready to use, unable to. tejeda out at about 12nnoon. bladder scanned about 300cc. PROSCAR 5mg po now given will monitor from now on for urine output
[2019-12-03 16:00] VITALS: BP 139/76
--- NOTE | 2019-12-03 17:15 | NUR ---
Pt A/O x1 to person. Able to make needs known. Pt currently sitting in cardiac chair eating dinner. Sitter at pt's side for 1:1 watch for pt safety. Pt denied any pain or discomfort. NO distress noted or reported. Noted A-fib on security monitor, HR=95. VS stable. All safety precautions in place. Awaiting pt to void since F/C was removed at about noon today. Will do bladder scan by 1830. Xarelto on hold due to hematuria from F/C, but no hematuria noted at this time. Pt safety and close monitoring continued.
--- NOTE | 2019-12-03 18:30 | NUR ---
Pt still has not voided and reported pain and pressure in bladder area when attempted to give him urinal to void. Bladder scan done and revealed 624 ml in bladder.
--- NOTE | 2019-12-03 18:31 | NUR ---
Notified Aiyana Michele NP re: pt has not voided since noon, when F/C was removed, and pt reported pressure/pain in bladder area upon attemping to void in urinal, but unable to void. Also notified her that bladder scan revealed 624 ml in bladder. Awaiting orders.
--- NOTE | 2019-12-03 18:45 | NUR ---
Received order to straight cath pt to relieve bladder pressure and urine. Will endorse to machinist 2nd shift RN.
--- NOTE | 2019-12-03 19:00 | NUR ---
Pt safety maintained during care of pt. SBAR report given to EVANGELIST Judd. Pt care and straight cath procedure Endorsed to EVANGELIST Judd.
--- NOTE | 2019-12-03 19:30 | NUR ---
Received patient resting in bed, easily to arouse. Patient complained of discomfort to abdomen. Informed that patient had Saunders removed and is retaining. Received order from Aiyana Michele NP for straight cath. Vitals WNL. Safety measures initiated. Bed is low and locked, call light within reach. Will continue to monitor.
[2019-12-03 20:40] VITALS: BP 139/77
[2019-12-03] MEDS: ATORVASTATIN 10 MG TABLET PO SCH (21:13)
--- NOTE | 2019-12-03 22:00 | NUR ---
Inserted straight cath and took out 750cc, urine was hematuria with foul smell. Informed Aiyana Michele, and she ordered for UA. sample sent to lab. 1:1 sitter at bedside for safety.
[2019-12-03 22:49] LABS: *BILIRUBIN,URIN NEGATIVE (NEGATIVE); *BLOOD, URINE 3+ (NEGATIVE); *CLARITY,URINE CLOUDY (CLEAR); *COLOR,URINE AMBER (YELLOW); *KETONES,URINE NEGATIVE (NEGATIVE); *UROBILINOGEN,URINE 0.2 E.U./dl (NORMAL); LEUKOCYTE ESTERASE ,URINE 1+ (NEGATIVE); NITRITE, URINE POSITIVE (NEGATIVE); UGLUCOSE NEGATIVE (NEGATIVE)
[2019-12-03 22:59] LABS: BACTERIA,URINE MANY /HPF (NONE SEEN); RBC,URINE TNTC /HPF (0-3); WBC,URINE 80-100 /HPF (0-3)
[2019-12-03 23:00] LABS: MUCUS,URINE MANY /LPF (0-FEW); SQUAMOUS EPITHELIAL CELL,UR FEW /HPF (NONE SEEN)
[2019-12-04 00:23] VITALS: BP 140/72
[2019-12-04] MEDS ORDERED: CEFTRIAXONE /D5W 50ML IVPB **ER PYXIS IV ONE (00:33)
[2019-12-04] MEDS: CEFTRIAXONE 1 G in IV DEXTROSE 5% 50 ML IV SCH (01:09)
--- NOTE | 2019-12-04 02:26 | NUR ---
UA was reported to Aiyana Michele NP and ordered Rocephin, dose given patient tolerated well.
[2019-12-04 05:45] VITALS: BP 138/90
[2019-12-04] MEDS: BLOOD SUGAR DIAGNOSTIC 1 EACH STRIP VI SCH ×4 (06:34→20:47)
[2019-12-04 06:37] LABS: MAGNESIUM 1.5 mg/dL (1.8-2.4); POTASSIUM 4.2 mmol/L (3.5-5.1)
[2019-12-04 06:43] LABS: BASOPHILS % (AUTO) 0.6 % (0.0-2.0); EOSINOPHILS # (AUTO) 0.1 K/uL (0.0-0.7); EOSINOPHILS % (AUTO) 1.4 % (0.0-7.0); HEMATOCRIT 41.1 % (36.7-47.1); HEMOGLOBIN 13.7 g/dL (12.5-16.3); LYMPHOCYTES # (AUTO) 0.9 K/uL (20.0-40.0); LYMPHOCYTES % (AUTO) 16.9 % (20.5-51.5); MEAN CORPUSCULAR HEMOGLOBIN 32.5 uug (23.8-33.4); MEAN CORPUSCULAR HGB CONC 33 g/dL (32.5-36.3); MEAN CORPUSCULAR VOLUME 97.5 fL (73.0-96.2); MONOCYTES # (AUTO) 0.4 K/uL (2.0-10.0); MONOCYTES % (AUTO) 7.6 % (0.0-11.0); NEUTROPHILS # (AUTO) 4.1 K/uL (1.8-8.9); NEUTROPHILS % (AUTO) 73.5 % (38.5-71.5); PLATELET COUNT (AUTO) 139 K/uL (152-348); RED BLOOD CELL COUNT(AUTO) 4.21 MIL/uL (4.06-5.63); WHITE BLOOD COUNT (AUTO) 5.6 K/uL (3.6-10.2)
[2019-12-04] MEDS: OLANZAPINE 5 MG TABLET PO SCH ×2 (08:35→20:38)
[2019-12-04] MEDS: GABAPENTIN 300 MG CAPSULE PO SCH ×3 (08:35→16:43)
[2019-12-04] MEDS: FINASTERIDE 5 MG TABLET PO SCH (08:35)
[2019-12-04] MEDS: FLUDROCORTISONE ACETATE 0.1 MG TABLET PO SCH ×2 (08:36→16:43)
--- NOTE | 2019-12-04 09:23 | NUR ---
PATIENT SEEN AND EXAMINED BY AARON LOGAN WITH NEW ORDERS AND NOTED MAG IS 1.5 WITH ORDERS
[2019-12-04] MEDS ORDERED: MAGNESIUM OXIDE 400 MG TABLET PO ONE (09:30)
[2019-12-04] MEDS: MAGNESIUM SULFATE/D5W 100 ML IV SCH ×2 (09:49→11:04)
--- NOTE | 2019-12-04 10:02 | NUR ---
ORDER FOR 2 GRAMS OF MAGNESSIUM RECEIVED FROM DR FERRARA NOTIFIED HIM THAT PATIENT ALREADY RECEIVED 800 MG OF MAG STATED ITS OKAY TO GIVE THE EXTRA MAG IVPB AND NOTED.
[2019-12-04 11:40] VITALS: BP 107/58
[2019-12-04 15:30] VITALS: BP 121/66
--- NOTE | 2019-12-04 17:00 | NUR ---
DISCHARGE PLANNING O2 REMOVED AND SAT CHECKED ON ROOM AIR AND ITS 96 PERCENT WILL LEAVE O2 OFF AND CHECK NEEDED AND ALSO PER FLOOR PROTOCOL.NO SHORTNESS OF BREATH AT THIS TIME
--- NOTE | 2019-12-04 19:00 | NUR ---
PATIENT AWAKE BUT WITH CONFUSION DUE TO MENTAL HEALTH CONDITION. PATIENT HAS NO COMPLAIN OF PAIN, NO SOB NO CHEST PAIN, TELE MONITOR A FLUTTER. PATIENT HAS EPISODE OF ANXIETY, TRIES TO CLIMB OUT OF BED, PATIENT WAS KEPT CLEAN DRY AND OFFER FOOD AND WATER, WITH HELP. CONT TO MONITOR.
[2019-12-04 19:34] VITALS: BP 134/69
[2019-12-04] MEDS: ATORVASTATIN 10 MG TABLET PO SCH (20:38)
[2019-12-04] MEDS: HYDROCODONE/APAP 5-325MG TABLET PO PRN (22:39)
--- NOTE | 2019-12-04 23:04 | NUR ---
PATIENT COMPLAIN OF GROIN PAIN, PATIENT HAS WET DIAPER, DID BLADDER SCAN WITH 700CC URINE ON THE BLADDER. PATIENT WAS STRAIGHT CATH OBTAIN 1000CC BLOOD TINGE COLOR URINE, NO ODOR NOTED, TOLERATE PROCEDURE, CONT TO MONITOR.
[2019-12-05] VITALS: BP 109/71
[2019-12-05] MEDS: CEFTRIAXONE 1 G in IV DEXTROSE 5% 50 ML IV SCH (00:48)
[2019-12-05] MEDS: LORAZEPAM 2 MG/1 ML VIAL IV PRN ×2 (01:01→12:48)
--- NOTE | 2019-12-05 01:01 | NUR ---
PATIENT HAS ANXIETY CLIMBS OUT OF BED, TRIES TO PULLED OUT TELE MONITOR BOX, UNABLE TO REDIRECT, GIVEN ATIVAN 0.5MG IV AWAITING FOR RESULT, CONT 1;1 SITTER FOR SAFETY. PATIENT WAS OFFERED FOOD AND WATER.
--- NOTE | 2019-12-05 01:01 | NUR ---
PATIENT AWAKE TALKING BUT UNCLEAR WHAT HE WANTED TO SAY. PATIENT WAS REDIRECTED BUT NOT EFFECTIVE, PATIENT TRIES TO CLIMB OUT OF BED, RISK FOR FALL. PATIENT WAS FREQUENT VISUAL CHECK DONE, WITH SITTER FOR SAFETY, OFFER FOOD AND WATER, CONT TO MONITOR.
--- NOTE | 2019-12-05 01:30 | NUR ---
ATIVAN MEDICATION WITH SOME HELP, CONT TO MONITOR.
--- NOTE | 2019-12-05 04:00 | NUR ---
PATIENT PULLED OUT ONE OF IV LINES, REMOVES TELE MONITOR BOX, REDIRECT PATIENT WITH HELP AT THIS TIME. PATIENT WAS KEPT CLEAN AND DRY, GIVEN SUGAR FREE PUDDING AND WATER AND JUICE, WITH HELP AT THIS TIME.
[2019-12-05 05:31] VITALS: BP 124/75
[2019-12-05] MEDS: BLOOD SUGAR DIAGNOSTIC 1 EACH STRIP VI SCH ×4 (06:23→20:09)
--- NOTE | 2019-12-05 06:29 | NUR ---
PATIENT ASLEEP BUT EASILY AROUSABLE, NO SOB NO CHEST PAIN, TELE MONITOR A FLUTTER. PATIENT WAS VOIDING ON THE DIAPER WITH MODERATE AMOUNT OF BLOOD TINGE COLOR URINE. PATIENT HAS NO FURTHER COMPLAIN OF GROIN OR LOWER ABDOMINAL PAIN AT THIS TIME. PATIENT WAS MONITOR OR FREQUENT VISUAL CHECK DONE, CONT TO MONITOR.
[2019-12-05 06:32] LABS: BASOPHILS % (AUTO) 0.2 % (0.0-2.0); EOSINOPHILS # (AUTO) 0.2 K/uL (0.0-0.7); EOSINOPHILS % (AUTO) 2.6 % (0.0-7.0); HEMATOCRIT 39.6 % (36.7-47.1); HEMOGLOBIN 13.2 g/dL (12.5-16.3); MEAN CORPUSCULAR HEMOGLOBIN 32.6 uug (23.8-33.4); MEAN CORPUSCULAR HGB CONC 33 g/dL (32.5-36.3); MONOCYTES # (AUTO) 0.8 K/uL (2.0-10.0); MONOCYTES % (AUTO) 12.8 % (0.0-11.0); NEUTROPHILS # (AUTO) 4.3 K/uL (1.8-8.9); NEUTROPHILS % (AUTO) 68.4 % (38.5-71.5); PLATELET COUNT (AUTO) 132 K/uL (152-348); RED BLOOD CELL COUNT(AUTO) 4.04 MIL/uL (4.06-5.63); WHITE BLOOD COUNT (AUTO) 6.2 K/uL (3.6-10.2)
[2019-12-05 06:39] LABS: CREATININE 0.9 mg/dL (0.6-1.3); MAGNESIUM 1.8 mg/dL (1.8-2.4); PHOSPHOROUS 3.4 mg/dL (2.5-4.9); POTASSIUM 3.7 mmol/L (3.5-5.1)
--- NOTE | 2019-12-05 07:15 | NUR ---
RECEIVED PATIENT IN BED AWAKE ALERT TO SELF COOPERATIVE AND COMPLIANT ON ROOM AIR WITH NO SOB AT THIS TIME NO S/S OF HYPO/HYPERGLYCEMIC REACTIONS AT THIS TIME D/C PLANNING AWAITHING FOR FINAL PLANS
[2019-12-05] MEDS: FINASTERIDE 5 MG TABLET PO SCH (08:15)
[2019-12-05] MEDS: GABAPENTIN 300 MG CAPSULE PO SCH ×3 (08:15→16:15)
[2019-12-05] MEDS: OLANZAPINE 5 MG TABLET PO SCH ×2 (08:16→20:03)
[2019-12-05] MEDS: FLUDROCORTISONE ACETATE 0.1 MG TABLET PO SCH ×2 (08:16→16:15)
[2019-12-05 12:00] VITALS: BP 197/80
--- NOTE | 2019-12-05 12:13 | NUR ---
ABDOMEN IS DISTENDED PATIENT HAS BEEN UNABLE TO VOID JUST FEW DROPS AT A TIME BLADDER CHECKED [place] SCAN[employer] AND ITS 740 ML JOHNSON CATHETER INSERTED AND SECURED PER FRIDA BAEZA THREAD DRESSER WITH RETURN OF DARK RED FLUIDS WITH DARK RED CLOTS IRRIGATED WITH SALINE WITH LOTS OF CLOTS CONNECTED TO GRAVITY DRAINGE WAS MEDICATED WITH MILK OF MAGNESIA LAST BOWEL MOVEMENT DOCUMENTED IS SAT 12/02/2019 PATIENT UNABLE TO RECALL IF HE HAS HAD A BOWEL MOVEMENT SINCE THIS DATE RELATED TO CONFUSSION AND DISORIENTATION.WILL CONTINUE TO OBSERVE AND PROVIDE SAFE AND THERAPEUTIC ENVIRONMENT AT ALL TIMES.
[2019-12-05] MEDS ORDERED: MAGNESIUM HYDROXIDE 30 ML LIQUID UDC PO PRN (12:15)
--- NOTE | 2019-12-05 12:48 | NUR ---
PATIENT IS AGITATED AND CONFUSED PULLING ON HIS JOHNSON ATTEMPTING TO GET OUT OF BED UNATTENDED AT RISKD FOR FALLS UNABLE TO REDIRECT MEDICATED WITH ATIVAN ORDERED AND WILL CONTINUE TO OBSERVE
[2019-12-05] MEDS: HYDROCODONE/APAP 5-325MG TABLET PO PRN ×2 (14:57→21:02)
--- NOTE | 2019-12-05 14:57 | NUR ---
AWAKE PULLING ON JOHNSON C/O PAIN UNABLE TO REDIRECT MEDICATED WITH NORCO ORDERED WILL OBSERVE
[2019-12-05 15:38] VITALS: BP 121/66
[2019-12-05] MEDS: INSULIN REGULAR, HUMAN 300 UNIT/3 ML VIAL SQ PRN (16:45)
--- NOTE | 2019-12-05 18:00 | NUR ---
SLEPT FOR A WHILE BUT IS AWAKE NOW FIGITING REDIRECTABLE WILL CONTINUE TO OBSERVE
--- NOTE | 2019-12-05 18:52 | NUR ---
RESULT OF THE KUB SHOWS BORDERLINE ILLEUS CALLED FRIDA AND LEFT HIM A MESSAGE ENDORSED
[2019-12-05 19:00] VITALS: BP 142/75
--- NOTE | 2019-12-05 19:00 | NUR ---
PATIENT AWAKE BUT WITH CONFUSION, NO SOB NO CHEST PAIN, TELE MONITOR A FLUTTER. PATIENT JOHNSON CATH DRAINING WITH DARK COLOR BLOOD WITH SOME CLOTS, IRRIGATE JOHNSON TOLERATE, DEON CAMARILLO WAS PAGE BY AM RN, PATIENT STABLE AT THIS TIME, CONT TO MONITOR.
[2019-12-05 19:17] LABS: HEMATOCRIT 38.1 % (36.7-47.1); HEMOGLOBIN 12.7 g/dL (12.5-16.3)
[2019-12-05] MEDS: NITROFURANTOIN/NITROFURAN MAC 100 MG CAPSULE PO SCH (20:04)
[2019-12-05] MEDS: ATORVASTATIN 10 MG TABLET PO SCH (20:04)
--- NOTE | 2019-12-05 21:27 | NUR ---
NOTIFY DR. AUGUSTIN THAT PATIENT JOHNSON CATH DRAINING WITH URINE PLUS DARK BRIGHT BLOOD, AND WITH SOME CLOTS. PATIENT HAS CURRENT H&H OF 12.7, HCT 38, V/S STABLE. DR AUGUSTIN ORDERED TO CONTINUE TO IRRIGATE JOHNSON CATH AT THIS TIME AND LABS IN AM.
--- NOTE | 2019-12-05 23:30 | NUR ---
PATIENT ASLEEP BUT EASILY AROUSABLE, NO SOB NO CHEST PAIN, TELE MONITOR AFIB 106, PATIENT HAS NO COMPLAIN OF PAIN AT THIS TIME. PATIENT JOHNSON DRAINING WITH PALE RED COLOR URINE, IN MODERATE AMOUNT WITH SMALL CLOTS, IRRIGATE JOHNSON CATH WITH NS TOLERATE WELL , JOHNSON CATH PATENT. CONT TO MONITOR.
[2019-12-06 00:19] VITALS: BP 139/95
[2019-12-06] MEDS: LORAZEPAM 2 MG/1 ML VIAL IV PRN ×2 (00:39→11:46)
[2019-12-06] MEDS: HYDROCODONE/APAP 5-325MG TABLET PO PRN ×2 (03:05→14:54)
[2019-12-06 04:00] VITALS: BP 101/78
--- NOTE | 2019-12-06 04:34 | NUR ---
PATIENT SLEEPY BUT FIGHTING HIS SLEEP. PATIENT HAS NO SOB NO CHEST PAIN, TELE MONITOR A FLUTTER THIS TIME. PATIENT HAS FACIAL GRIMACY, EXPRESSING PAIN ON JOEY AREA, MEDICATE PATIENT ORDERED WITH HELP AFTER ONE HOUR, PATIENT JOHNSON CATH STILL WITH BLOOD TINGE COLOR URINE, CONTINUE TO IRRIGATE FC ORDERED, PATIENT HAS EPISODE OF AGITATION BY YELLING AND TRIES TO CLIMB OUT OF BED. CONT ON 2;1 SITTER FOR SAFETY. V/S STABLE, CONT TO MONITOR.
[2019-12-06] MEDS: BLOOD SUGAR DIAGNOSTIC 1 EACH STRIP VI SCH ×4 (06:12→20:14)
[2019-12-06 07:10] LABS: BASOPHILS % (AUTO) 0.4 % (0.0-2.0); EOSINOPHILS # (AUTO) 0.2 K/uL (0.0-0.7); EOSINOPHILS % (AUTO) 3.7 % (0.0-7.0); HEMATOCRIT 36.7 % (36.7-47.1); HEMOGLOBIN 12.2 g/dL (12.5-16.3); LYMPHOCYTES % (AUTO) 21.7 % (20.5-51.5); MEAN CORPUSCULAR HEMOGLOBIN 32.2 uug (23.8-33.4); MEAN CORPUSCULAR HGB CONC 33 g/dL (32.5-36.3); MEAN CORPUSCULAR VOLUME 97.3 fL (73.0-96.2); MONOCYTES # (AUTO) 0.9 K/uL (2.0-10.0); MONOCYTES % (AUTO) 19.8 % (0.0-11.0); NEUTROPHILS # (AUTO) 2.6 K/uL (1.8-8.9); NEUTROPHILS % (AUTO) 54.4 % (38.5-71.5); PLATELET COUNT (AUTO) 142 K/uL (152-348); RED BLOOD CELL COUNT(AUTO) 3.78 MIL/uL (4.06-5.63); WHITE BLOOD COUNT (AUTO) 4.7 K/uL (3.6-10.2)
--- NOTE | 2019-12-06 07:25 | NUR ---
RECEIVED PATIENT SLEEPING IN BED. NO ACUTE DISTRESS NOTED. BED IN LOWEST POSITION, SIDE RAILS UP X2, CORRY LIGHT WITHIN REACH, SITTER AT BEDSIDE. WILL CONTINUE TO MONITOR.
[2019-12-06 07:57] LABS: CREATININE 0.8 mg/dL (0.6-1.3)
[2019-12-06 08:15] LABS: POTASSIUM 3.8 mmol/L (3.5-5.1)
[2019-12-06] MEDS: FLUDROCORTISONE ACETATE 0.1 MG TABLET PO SCH ×2 (09:19→17:20)
[2019-12-06] MEDS: GABAPENTIN 300 MG CAPSULE PO SCH ×3 (09:19→17:20)
[2019-12-06] MEDS: OLANZAPINE 5 MG TABLET PO SCH ×2 (09:19→20:07)
[2019-12-06] MEDS: FINASTERIDE 5 MG TABLET PO SCH (09:19)
[2019-12-06] MEDS: NITROFURANTOIN/NITROFURAN MAC 100 MG CAPSULE PO SCH ×2 (09:19→20:06)
[2019-12-06 09:58] LABS: EOSINOPHILS % (MANUAL) 3 % (0-8); LYMPHOCYTES % (MANUAL) 21 % (20-40); MONOCYTES % (MANUAL) 20 % (2-10); NEUTROPHILS % (MANUAL) 56 % (42-75)
[2019-12-06 11:39] VITALS: BP 141/79
--- NOTE | 2019-12-06 18:31 | NUR ---
PATIENT RESTED INTERMITTENTLY THROUGHOUT DAY, PATIENT RESTLESS PATIENT GIVEN NORCO AND REORIENTED. NO ACUTE DISTRESS THROUGHOUT SHIFT. SITTER AT BEDSIDE.
[2019-12-06 19:00] VITALS: BP 120/66
--- NOTE | 2019-12-06 19:20 | NUR ---
Received patient lying in bed. Asleep but easily arouse to verbal stimuli. In no acute distress. No signs and symptoms of pain or SOB at this time. NSR on tele at 82/min. Right FA IV site intact and patent. Saunders catheter intact and patent. Still with hematuria. Hand mittens in place for safety. 1:1 sitter on site. Safety measure initiated. Continue to monitor.
[2019-12-06] MEDS: TAMSULOSIN HCL 0.4 MG CAP.SR.24H PO SCH (20:07)
[2019-12-06] MEDS: ATORVASTATIN 10 MG TABLET PO SCH (20:07)
[2019-12-07] VITALS: BP 116/68
--- NOTE | 2019-12-07 05:36 | NUR ---
Patient appears comfortable at this time. In no acute distress. No signs and symptoms of pain or SOB. A. Flutter on tele at 100's/min. Right FA IV site intact and patent. No adverse effect noted from PO ABX. Saunders catheter intact and patent. Irrigated per order. Still with hematuria. less darker. Hand mittens in place for safety. 1:1 sitter on site. Safety measure maintained.
[2019-12-07] MEDS: BLOOD SUGAR DIAGNOSTIC 1 EACH STRIP VI SCH ×4 (06:43→22:47)
[2019-12-07 06:46] LABS: BASOPHILS % (AUTO) 0.2 % (0.0-2.0); EOSINOPHILS # (AUTO) 0.1 K/uL (0.0-0.7); EOSINOPHILS % (AUTO) 2.8 % (0.0-7.0); HEMATOCRIT 36.8 % (36.7-47.1); HEMOGLOBIN 12.4 g/dL (12.5-16.3); LYMPHOCYTES # (AUTO) 0.8 K/uL (20.0-40.0); LYMPHOCYTES % (AUTO) 18.3 % (20.5-51.5); MEAN CORPUSCULAR HEMOGLOBIN 32.6 uug (23.8-33.4); MEAN CORPUSCULAR HGB CONC 34 g/dL (32.5-36.3); MONOCYTES # (AUTO) 0.7 K/uL (2.0-10.0); MONOCYTES % (AUTO) 16.2 % (0.0-11.0); NEUTROPHILS # (AUTO) 2.7 K/uL (1.8-8.9); NEUTROPHILS % (AUTO) 62.5 % (38.5-71.5); PLATELET COUNT (AUTO) 146 K/uL (152-348); RED BLOOD CELL COUNT(AUTO) 3.79 MIL/uL (4.06-5.63); WHITE BLOOD COUNT (AUTO) 4.2 K/uL (3.6-10.2)
[2019-12-07 06:59] LABS: CREATININE 0.9 mg/dL (0.6-1.3); POTASSIUM 3.8 mmol/L (3.5-5.1)
--- NOTE | 2019-12-07 08:06 | NUR ---
Sleeping, appears comfortable. Bilateral hand mittens on. 1:1 sitter at bedside. Catheter to drainage bag with bloody urine.
[2019-12-07] MEDS: FINASTERIDE 5 MG TABLET PO SCH (09:00)
[2019-12-07] MEDS: NITROFURANTOIN/NITROFURAN MAC 100 MG CAPSULE PO SCH ×2 (09:00→21:55)
[2019-12-07] MEDS: FLUDROCORTISONE ACETATE 0.1 MG TABLET PO SCH ×2 (09:00→17:07)
[2019-12-07] MEDS: GABAPENTIN 300 MG CAPSULE PO SCH ×3 (09:00→17:07)
[2019-12-07] MEDS: OLANZAPINE 5 MG TABLET PO SCH ×2 (09:01→21:55)
[2019-12-07] MEDS: HYDROCODONE/APAP 5-325MG TABLET PO PRN ×2 (09:09→17:40)
--- NOTE | 2019-12-07 09:10 | NUR ---
Complained of pain when repositioned. [place] po given.
[2019-12-07 09:45] LABS: EOSINOPHILS % (MANUAL) 4 % (0-8); LYMPHOCYTES % (MANUAL) 20 % (20-40); MONOCYTES % (MANUAL) 15 % (2-10); NEUTROPHILS % (MANUAL) 61 % (42-75)
[2019-12-07 12:14] VITALS: BP 124/64
[2019-12-07] MEDS: INSULIN REGULAR, HUMAN 300 UNIT/3 ML VIAL SQ PRN (12:21)
--- NOTE | 2019-12-07 12:30 | NUR ---
Catheter with bloody urine. Bladder irrigation done but noted bleeding with blood clots in the penile meatus. Bed bath given. Repositioned comfortably.
--- NOTE | 2019-12-07 15:00 | NUR ---
Sleeping, comfortable. 1:1 sitter at bedside.
[2019-12-07 15:28] VITALS: BP 111/78
--- NOTE | 2019-12-07 19:23 | NUR ---
Sleeping, comfortable. 1:1 sitter at bedside. Catheter still with bloody urine
[2019-12-07 20:00] VITALS: BP 106/69
[2019-12-07] MEDS: ATORVASTATIN 10 MG TABLET PO SCH (21:55)
[2019-12-07] MEDS: TAMSULOSIN HCL 0.4 MG CAP.SR.24H PO SCH (21:55)
--- NOTE | 2019-12-07 22:50 | NUR ---
Dr. Liu is with the patient. Irrigated the bladder with saline, several clot were aspirated, tolerated well. Ordered Ancef IM and PRN irrigation of the bladder.
[2019-12-07] MEDS ORDERED: CEFAZOLIN 1 G VIAL ONE (23:55)
[2019-12-08] VITALS: BP 114/53
[2019-12-08] MEDS: CEFAZOLIN 1 G VIAL IM SCH ×2 (00:20→06:49)
[2019-12-08 04:00] VITALS: BP 114/72
[2019-12-08 06:39] LABS: CREATININE 0.8 mg/dL (0.6-1.3); POTASSIUM 3.8 mmol/L (3.5-5.1)
[2019-12-08] MEDS: BLOOD SUGAR DIAGNOSTIC 1 EACH STRIP VI SCH ×4 (06:49→21:20)
[2019-12-08 07:06] LABS: BASOPHILS % (AUTO) 0.5 % (0.0-2.0); EOSINOPHILS # (AUTO) 0.2 K/uL (0.0-0.7); EOSINOPHILS % (AUTO) 5.1 % (0.0-7.0); HEMOGLOBIN 11.9 g/dL (12.5-16.3); LYMPHOCYTES # (AUTO) 1.1 K/uL (20.0-40.0); LYMPHOCYTES % (AUTO) 23.5 % (20.5-51.5); MEAN CORPUSCULAR HEMOGLOBIN 32.3 uug (23.8-33.4); MEAN CORPUSCULAR HGB CONC 33 g/dL (32.5-36.3); MEAN CORPUSCULAR VOLUME 97.4 fL (73.0-96.2); MONOCYTES # (AUTO) 0.8 K/uL (2.0-10.0); MONOCYTES % (AUTO) 18.7 % (0.0-11.0); NEUTROPHILS # (AUTO) 2.4 K/uL (1.8-8.9); NEUTROPHILS % (AUTO) 52.2 % (38.5-71.5); PLATELET COUNT (AUTO) 156 K/uL (152-348); WHITE BLOOD COUNT (AUTO) 4.5 K/uL (3.6-10.2)
[2019-12-08 07:30] VITALS: BP 121/79
--- NOTE | 2019-12-08 07:30 | NUR ---
RESTING IN BED WITH 1:1 SITTER AWAKE ALERT BUT CONFUSED AND DISORIENTED X3. NO SS OF POAIN OR DISTRESS. SR ON MONITOR
[2019-12-08] MEDS: FINASTERIDE 5 MG TABLET PO SCH (09:02)
[2019-12-08] MEDS: OLANZAPINE 5 MG TABLET PO SCH ×2 (09:02→20:37)
[2019-12-08] MEDS: NITROFURANTOIN/NITROFURAN MAC 100 MG CAPSULE PO SCH ×2 (09:02→20:37)
[2019-12-08] MEDS: GABAPENTIN 300 MG CAPSULE PO SCH ×3 (09:02→17:01)
[2019-12-08] MEDS: FLUDROCORTISONE ACETATE 0.1 MG TABLET PO SCH ×2 (09:02→17:02)
[2019-12-08 09:30] LABS: EOSINOPHILS % (MANUAL) 4 % (0-8); LYMPHOCYTES % (MANUAL) 28 % (20-40); MONOCYTES % (MANUAL) 17 % (2-10); MYELOCYTES % 1 % (0-0); NEUTROPHILS % (MANUAL) 50 % (42-75)
[2019-12-08] MEDS: HYDROCODONE/APAP 5-325MG TABLET PO PRN ×2 (11:58→20:44)
[2019-12-08 13:00] VITALS: BP 120/82
[2019-12-08] MEDS: LORAZEPAM 2 MG/1 ML VIAL IV PRN (13:46)
[2019-12-08] MEDS ORDERED: CEFAZOLIN 1 G VIAL IM SCH (14:00)
[2019-12-08 16:10] VITALS: BP 118/76
[2019-12-08 20:36] VITALS: BP 109/76
[2019-12-08] MEDS: ATORVASTATIN 10 MG TABLET PO SCH (20:37)
[2019-12-08] MEDS: TAMSULOSIN HCL 0.4 MG CAP.SR.24H PO SCH (20:38)
[2019-12-08] MEDS: INSULIN REGULAR, HUMAN 300 UNIT/3 ML VIAL SQ PRN (21:48)
--- NOTE | 2019-12-09 06:30 | NUR ---
Saunders was irrigated, bag was changed. Two clots were aspirated. Tolerated well
[2019-12-09 07:04] LABS: BASOPHILS % (AUTO) 0.5 % (0.0-2.0); EOSINOPHILS # (AUTO) 0.2 K/uL (0.0-0.7); EOSINOPHILS % (AUTO) 3.7 % (0.0-7.0); HEMATOCRIT 35.3 % (36.7-47.1); HEMOGLOBIN 11.7 g/dL (12.5-16.3); LYMPHOCYTES # (AUTO) 1.2 K/uL (20.0-40.0); LYMPHOCYTES % (AUTO) 22.5 % (20.5-51.5); MEAN CORPUSCULAR HEMOGLOBIN 32.5 uug (23.8-33.4); MEAN CORPUSCULAR HGB CONC 33 g/dL (32.5-36.3); MEAN CORPUSCULAR VOLUME 97.8 fL (73.0-96.2); MONOCYTES # (AUTO) 0.9 K/uL (2.0-10.0); NEUTROPHILS # (AUTO) 3.1 K/uL (1.8-8.9); NEUTROPHILS % (AUTO) 57.3 % (38.5-71.5); PLATELET COUNT (AUTO) 162 K/uL (152-348); RED BLOOD CELL COUNT(AUTO) 3.61 MIL/uL (4.06-5.63); WHITE BLOOD COUNT (AUTO) 5.4 K/uL (3.6-10.2)
[2019-12-09] MEDS: BLOOD SUGAR DIAGNOSTIC 1 EACH STRIP VI SCH ×4 (07:05→21:31)
--- NOTE | 2019-12-09 07:15 | NUR ---
Patient in Bed, awake and verbally responsive. No signs of distress noted. No SOB. No complain of Pain or discomfort. On 1:1 sitter at bedside for safety. Saunders Catheter draining with [place] colored Urine. No Blood clots noted. Kept comfortable. Will continue to monitor.
[2019-12-09 07:25] LABS: CREATININE 0.8 mg/dL (0.6-1.3)
[2019-12-09] MEDS: NITROFURANTOIN/NITROFURAN MAC 100 MG CAPSULE PO SCH ×2 (08:25→21:20)
[2019-12-09] MEDS: OLANZAPINE 5 MG TABLET PO SCH ×2 (08:25→21:20)
[2019-12-09] MEDS: FLUDROCORTISONE ACETATE 0.1 MG TABLET PO SCH ×2 (08:25→16:32)
[2019-12-09] MEDS: FINASTERIDE 5 MG TABLET PO SCH (08:25)
[2019-12-09] MEDS: GABAPENTIN 300 MG CAPSULE PO SCH ×3 (08:25→16:32)
[2019-12-09 10:00] LABS: EOSINOPHILS % (MANUAL) 2 % (0-8); LYMPHOCYTES % (MANUAL) 29 % (20-40); MONOCYTES % (MANUAL) 10 % (2-10); NEUTROPHILS % (MANUAL) 59 % (42-75)
[2019-12-09] MEDS: LORAZEPAM 2 MG/1 ML VIAL IV PRN (10:57)
[2019-12-09 11:00] VITALS: BP 117/71
[2019-12-09 15:23] VITALS: BP 119/71
--- NOTE | 2019-12-09 18:24 | NUR ---
Patient in bed, awake and verbally responsive. No signs of distress noted. No SOB. NO complain of Pain or discomfort. On 1:1 sitter for safety. Patient with episode of Agitation/Anxiety, Ativan 0.5mg given as ordered, effective after 1 hour. All due medications given as ordered. No signs of hyper/Hypoglycemia. Latest BS is 109. kept clean ans comfortable. Will endorse to Oncoming Nurse.
--- NOTE | 2019-12-09 19:30 | NUR ---
Received patient awake and alert in bed, A/Ox1. No acute distress noted. 1:1 sitter at bedside. Bilateral mittens applied. No s/s of pain or SOB. Saunders catheter intact, hematuria noted. Heplock on the right wrist is intact and patent. Safety measures initiated. Bed is low and locked, call light within reach. Will continue to monitor.
[2019-12-09] MEDS: ATORVASTATIN 10 MG TABLET PO SCH (21:20)
[2019-12-09] MEDS: TAMSULOSIN HCL 0.4 MG CAP.SR.24H PO SCH (21:20)
[2019-12-09 21:31] VITALS: BP 115/63
[2019-12-10 00:58] VITALS: BP 128/62
[2019-12-10 05:00] VITALS: BP 121/74
--- NOTE | 2019-12-10 05:32 | NUR ---
Patient slept well. bilateral mittens intact, Q2H checks done. Saunders draining, dark red. Irrigation done, small clots noted. Safety measures given. Will endorse to next shift.
[2019-12-10] MEDS: BLOOD SUGAR DIAGNOSTIC 1 EACH STRIP VI SCH ×4 (06:37→20:41)
--- NOTE | 2019-12-10 07:50 | NUR ---
RECEIVED PT RESTING IN BED. NO ACUTE DISTRESS OR SOB NOTED. HAND MITTENS ON FOR SAFETY. 1:1 SITTER AT BEDSIDE FOR SAFETY. BED LOCKED AND IN LOW POSITION. CALL LIGHT WITHIN REACH. TELE ATRIAL FLUTTER. WILL CONTINUE TO MONITOR FOR SAFETY AND COMFORT.
[2019-12-10 08:00] VITALS: BP 120/84
[2019-12-10] MEDS: NITROFURANTOIN/NITROFURAN MAC 100 MG CAPSULE PO SCH ×2 (09:02→20:01)
[2019-12-10] MEDS: FLUDROCORTISONE ACETATE 0.1 MG TABLET PO SCH ×2 (09:02→17:37)
[2019-12-10] MEDS: FINASTERIDE 5 MG TABLET PO SCH (09:02)
[2019-12-10] MEDS: OLANZAPINE 5 MG TABLET PO SCH ×2 (09:02→20:01)
[2019-12-10] MEDS: GABAPENTIN 300 MG CAPSULE PO SCH ×3 (09:02→17:37)
--- NOTE | 2019-12-10 11:05 | NUR ---
PT'S JOHNSON CATHETER IRRIGATED. SMALL CLOTS FLUSHED. URINE IS YELLOW.
[2019-12-10 12:00] VITALS: BP 132/78
[2019-12-10] MEDS: IV NS 1000 ML 1,000 ML IV PRN (13:01)
[2019-12-10 16:00] VITALS: BP 134/86
--- NOTE | 2019-12-10 18:06 | NUR ---
PT'S JOHNSON CATHETER IRRIGATED. NO BLOOD CLOTS FLUSHED. URINE YELLOW CLEAR. NO ACUTE DISTRESS NOTED. NO SOB NOTED. PT ON O2 @ 2L/M VIA N/N SATURATING 98%. PT WAS DC'D FROM TELEMETRY. PT IS MEDICATION COMPLIANT. PT HAS A 11 SITTER AT BEDSIDE FOR SAFETY. BED LOCKED AND IN LOWEST POSITION. WILL GIVE REPORT ACCORDINGLY.
--- NOTE | 2019-12-10 19:20 | NUR ---
PATIENT ALERT AND AWAKE. PATIENT ON 1:1 FOR SAFETY. NO SOB AND NO CHEST PAIN NOTED. NO S/S OF ACUTE DISTRESS NOTED. SAFETY A AND COMFORT PROVIDED CALL LIGHT WITHIN REACH. WILL CONTINUE TO MONITOR
[2019-12-10 20:00] VITALS: BP 124/79
[2019-12-10] MEDS: ATORVASTATIN 10 MG TABLET PO SCH (20:01)
[2019-12-10] MEDS: TAMSULOSIN HCL 0.4 MG CAP.SR.24H PO SCH (20:01)
[2019-12-11] MEDS: HYDROCODONE/APAP 5-325MG TABLET PO PRN (00:27)
[2019-12-11] MEDS: IV NS 1000 ML 1,000 ML IV PRN (02:35)
[2019-12-11 04:00] VITALS: BP 98/71
[2019-12-11 06:35] LABS: BASOPHILS % (AUTO) 0.4 % (0.0-2.0); EOSINOPHILS # (AUTO) 0.2 K/uL (0.0-0.7); EOSINOPHILS % (AUTO) 2.7 % (0.0-7.0); HEMATOCRIT 33.1 % (36.7-47.1); LYMPHOCYTES # (AUTO) 1.2 K/uL (20.0-40.0); LYMPHOCYTES % (AUTO) 19.7 % (20.5-51.5); MEAN CORPUSCULAR HEMOGLOBIN 32.5 uug (23.8-33.4); MEAN CORPUSCULAR HGB CONC 33 g/dL (32.5-36.3); MEAN CORPUSCULAR VOLUME 98.1 fL (73.0-96.2); MONOCYTES # (AUTO) 0.8 K/uL (2.0-10.0); MONOCYTES % (AUTO) 14.3 % (0.0-11.0); NEUTROPHILS # (AUTO) 3.7 K/uL (1.8-8.9); NEUTROPHILS % (AUTO) 62.9 % (38.5-71.5); PLATELET COUNT (AUTO) 181 K/uL (152-348); RED BLOOD CELL COUNT(AUTO) 3.38 MIL/uL (4.06-5.63); WHITE BLOOD COUNT (AUTO) 5.9 K/uL (3.6-10.2)
[2019-12-11] MEDS: BLOOD SUGAR DIAGNOSTIC 1 EACH STRIP VI SCH ×4 (06:44→20:49)
[2019-12-11 06:49] LABS: CREATININE 0.7 mg/dL (0.6-1.3); POTASSIUM 3.7 mmol/L (3.5-5.1)
--- NOTE | 2019-12-11 06:55 | NUR ---
PATIENT ASLEEP PATIENT ON 1:1 FOR SAFETY. NO SOB AND NO CHEST PAIN NOTED. NO S/S OF ACUTE DISTRESS NOTED. SAFETY A AND COMFORT PROVIDED CALL LIGHT WITHIN REACH. WILL CONTINUE TO MONITOR
--- NOTE | 2019-12-11 07:30 | NUR ---
Patient calm and comfortable with no sings of distress; patient will continue to monitored.
[2019-12-11 08:00] VITALS: BP 127/74
[2019-12-11] MEDS: GABAPENTIN 300 MG CAPSULE PO SCH ×3 (09:13→17:27)
[2019-12-11] MEDS: NITROFURANTOIN/NITROFURAN MAC 100 MG CAPSULE PO SCH ×2 (09:13→20:32)
[2019-12-11] MEDS: FLUDROCORTISONE ACETATE 0.1 MG TABLET PO SCH ×2 (09:13→17:27)
[2019-12-11] MEDS: FINASTERIDE 5 MG TABLET PO SCH (09:13)
[2019-12-11] MEDS: OLANZAPINE 5 MG TABLET PO SCH ×2 (09:13→20:32)
[2019-12-11 12:54] VITALS: BP 122/63
--- NOTE | 2019-12-11 18:45 | NUR ---
Patient with one to one sitter through out shift. Patient with no signs of distress; patient medication compliant ; patient with stable vital signs . Report given to oncoming nurse.
--- NOTE | 2019-12-11 19:30 | NUR ---
RECEIVED PT AWAKE, ALERT AND ORIENTEDX1 . SITTER AT BEDSIDE FOR SAFETY. PT IN NO ACUTE DISTRESS. IV INTACT. JOHNSON INTACT AND DWELLING CARMIAT COLOR URINE. SAFETY AND COMFORT PROVIDED. WILL CONTINUE TO MONITOR.
[2019-12-11 20:00] VITALS: BP 125/50
[2019-12-11] MEDS: ATORVASTATIN 10 MG TABLET PO SCH (20:32)
[2019-12-11] MEDS: TAMSULOSIN HCL 0.4 MG CAP.SR.24H PO SCH (20:32)
[2019-12-11] MEDS: ACETAMINOPHEN 325 MG TABLET PO PRN (20:42)
--- NOTE | 2019-12-12 03:41 | NUR ---
HANDS OFF REPORT TO LÁZARO BLANCA. PT IN NO ACUTE DISTRESS. SITTER AT BEDSIDE FOR SAFETY. WILL CONTINUE TO MONITOR.
[2019-12-12 04:00] VITALS: BP 153/78
[2019-12-12 06:30] LABS: BASOPHILS % (AUTO) 0.5 % (0.0-2.0); EOSINOPHILS # (AUTO) 0.2 K/uL (0.0-0.7); EOSINOPHILS % (AUTO) 2.7 % (0.0-7.0); HEMATOCRIT 34.4 % (36.7-47.1); HEMOGLOBIN 11.4 g/dL (12.5-16.3); LYMPHOCYTES # (AUTO) 1.2 K/uL (20.0-40.0); LYMPHOCYTES % (AUTO) 20.3 % (20.5-51.5); MEAN CORPUSCULAR HEMOGLOBIN 32.4 uug (23.8-33.4); MEAN CORPUSCULAR HGB CONC 33 g/dL (32.5-36.3); MEAN CORPUSCULAR VOLUME 97.5 fL (73.0-96.2); MONOCYTES # (AUTO) 0.7 K/uL (2.0-10.0); MONOCYTES % (AUTO) 11.4 % (0.0-11.0); NEUTROPHILS # (AUTO) 3.9 K/uL (1.8-8.9); NEUTROPHILS % (AUTO) 65.1 % (38.5-71.5); PLATELET COUNT (AUTO) 211 K/uL (152-348); RED BLOOD CELL COUNT(AUTO) 3.53 MIL/uL (4.06-5.63)
[2019-12-12 06:38] LABS: CARBON DIOXIDE 27 mmol/L (21-32); CHLORIDE 106 mmol/L (98-107); CREATININE 0.7 mg/dL (0.6-1.3); GLUCOSE 91 mg/dL (74-106); POTASSIUM 3.8 mmol/L (3.5-5.1); UREA NITROGEN, BLOOD 19 mg/dL (7-18)
[2019-12-12] MEDS: BLOOD SUGAR DIAGNOSTIC 1 EACH STRIP VI SCH ×4 (07:00→20:46)
--- NOTE | 2019-12-12 07:30 | NUR ---
Patient calm and comfortable with no signs of distress ; patient with 1:1 sitter; patient will continue to be monitored.
[2019-12-12] MEDS: OLANZAPINE 5 MG TABLET PO SCH ×2 (09:04→20:45)
[2019-12-12] MEDS: GABAPENTIN 300 MG CAPSULE PO SCH ×3 (09:04→17:24)
[2019-12-12] MEDS: FLUDROCORTISONE ACETATE 0.1 MG TABLET PO SCH ×2 (09:05→17:24)
[2019-12-12] MEDS: FINASTERIDE 5 MG TABLET PO SCH (09:05)
[2019-12-12] MEDS: NITROFURANTOIN/NITROFURAN MAC 100 MG CAPSULE PO SCH (09:05)
[2019-12-12 20:00] VITALS: BP 117/76
[2019-12-12] MEDS: TAMSULOSIN HCL 0.4 MG CAP.SR.24H PO SCH (20:45)
[2019-12-12] MEDS: ATORVASTATIN 10 MG TABLET PO SCH (20:45)
[2019-12-13 04:00] VITALS: BP 127/77
--- NOTE | 2019-12-13 06:01 | NUR ---
Patient with 1:1 sitter through out shift; patient became very aggressive prior shift and tried to pull tejeda cather patient seemed to cause trauma to penis as there was hematuria in tejeda bag; tejeda then became clotted; tejeda changed out and tried to keep patency with irrigation and flushing ; patient still passing multiple clots ; md notified and placed orders for cbc and d1/2 ns along with cbc; orders received and carried out.
[2019-12-13] MEDS: IV D5 1/2 NS 1000 ML 1,000 ML IV PRN ×2 (06:51→21:05)
[2019-12-13] MEDS: BLOOD SUGAR DIAGNOSTIC 1 EACH STRIP VI SCH ×4 (06:51→21:15)
[2019-12-13 07:06] LABS: BASOPHILS % (AUTO) 0.7 % (0.0-2.0); EOSINOPHILS # (AUTO) 0.1 K/uL (0.0-0.7); EOSINOPHILS % (AUTO) 1.4 % (0.0-7.0); LYMPHOCYTES % (AUTO) 14.1 % (20.5-51.5); MEAN CORPUSCULAR HEMOGLOBIN 32.5 uug (23.8-33.4); MEAN CORPUSCULAR HGB CONC 33 g/dL (32.5-36.3); MEAN CORPUSCULAR VOLUME 97.1 fL (73.0-96.2); MONOCYTES # (AUTO) 0.7 K/uL (2.0-10.0); MONOCYTES % (AUTO) 9.7 % (0.0-11.0); NEUTROPHILS # (AUTO) 5.1 K/uL (1.8-8.9); NEUTROPHILS % (AUTO) 74.1 % (38.5-71.5); PLATELET COUNT (AUTO) 207 K/uL (152-348); RED BLOOD CELL COUNT(AUTO) 3.09 MIL/uL (4.06-5.63); WHITE BLOOD COUNT (AUTO) 6.9 K/uL (3.6-10.2)
[2019-12-13] MEDS: GABAPENTIN 300 MG CAPSULE PO SCH ×3 (08:37→17:27)
[2019-12-13] MEDS: FINASTERIDE 5 MG TABLET PO SCH (08:37)
[2019-12-13] MEDS: FLUDROCORTISONE ACETATE 0.1 MG TABLET PO SCH ×2 (08:37→17:27)
[2019-12-13] MEDS: OLANZAPINE 5 MG TABLET PO SCH ×2 (08:38→21:07)
[2019-12-13] MEDS: INSULIN REGULAR, HUMAN 300 UNIT/3 ML VIAL SQ PRN ×2 (18:17→21:16)
--- NOTE | 2019-12-13 19:30 | NUR ---
Received patient resting in bed, easily to arouse. 1:1 sitter at bedside for safety. Mittens are intact, will do Q2H checks. No acute distress noted. IVF running on the right forearm, no s/s of infection or infiltration noted. Saunders is intact, noted with dark red hematuria. Per report, patient pulled out Saunders this morning. Safety measures initiated. Bed is low and locked, call light within reach. Will continue to monitor.
[2019-12-13 20:00] VITALS: BP 138/95
[2019-12-13] MEDS: TAMSULOSIN HCL 0.4 MG CAP.SR.24H PO SCH (21:06)
[2019-12-13] MEDS: ATORVASTATIN 10 MG TABLET PO SCH (21:06)
[2019-12-13] MEDS: HYDROCODONE/APAP 5-325MG TABLET PO PRN (23:12)
[2019-12-14] MEDS: HYDROCODONE/APAP 5-325MG TABLET PO PRN (03:15)
[2019-12-14 05:00] VITALS: BP 124/73
[2019-12-14] MEDS: BLOOD SUGAR DIAGNOSTIC 1 EACH STRIP VI SCH ×2 (06:41→11:18)
--- NOTE | 2019-12-14 08:00 | NUR ---
Received patient in bed, awake and verbally responsive. No signs of distress noted. No SOB. No complain of Pain or discomfort, Patient still noted with hematuria and clots in draining from Saunders catheter. Inserted [address] way catheter and irrigating with NS, Saunders catheter draining hematuria with clots. Will continue to monitor.
[2019-12-14] MEDS: FINASTERIDE 5 MG TABLET PO SCH (08:19)
[2019-12-14] MEDS: OLANZAPINE 5 MG TABLET PO SCH (08:19)
[2019-12-14] MEDS: GABAPENTIN 300 MG CAPSULE PO SCH ×2 (08:19→13:45)
[2019-12-14] MEDS: FLUDROCORTISONE ACETATE 0.1 MG TABLET PO SCH (08:19)
[2019-12-14] MEDS: INSULIN REGULAR, HUMAN 300 UNIT/3 ML VIAL SQ PRN (08:21)
--- NOTE | 2019-12-14 10:00 | NUR ---
Irrigated 1L with Output of 2L of Bloody colored Urine with blood clots. Vital signs 128/77 P 119 sat 96%. ACCOUNTS RECEIVABLE ANALYST Km is aware.
[2019-12-14 10:53] LABS: BASOPHILS % (AUTO) 0.2 % (0.0-2.0); EOSINOPHILS % (AUTO) 0.1 % (0.0-7.0); HEMATOCRIT 33.5 % (36.7-47.1); HEMOGLOBIN 10.9 g/dL (12.5-16.3); LYMPHOCYTES # (AUTO) 0.7 K/uL (20.0-40.0); MEAN CORPUSCULAR HEMOGLOBIN 32.2 uug (23.8-33.4); MEAN CORPUSCULAR HGB CONC 33 g/dL (32.5-36.3); MEAN CORPUSCULAR VOLUME 98.9 fL (73.0-96.2); MONOCYTES % (AUTO) 8.7 % (0.0-11.0); NEUTROPHILS # (AUTO) 9.5 K/uL (1.8-8.9); PLATELET COUNT (AUTO) 209 K/uL (152-348); RED BLOOD CELL COUNT(AUTO) 3.39 MIL/uL (4.06-5.63); WHITE BLOOD COUNT (AUTO) 11.2 K/uL (3.6-10.2)
[2019-12-14 10:59] LABS: CREATININE 1.3 mg/dL (0.6-1.3); POTASSIUM 4.3 mmol/L (3.5-5.1)
[2019-12-14 11:03] LABS: MAGNESIUM 1.8 mg/dL (1.8-2.4); PHOSPHOROUS 4.4 mg/dL (2.5-4.9)
[2019-12-14 11:14] VITALS: BP 126/103
[2019-12-14] MEDS ORDERED: IV NS 1000 ML 1,000 ML IV ONE ×2 (11:30→14:15)
--- NOTE | 2019-12-14 11:30 | NUR ---
On continues 3way Tejeda catheter irrigation, Irrigated another 1L with output of 1150ml light red output from the tejeda catheter.
--- NOTE | 2019-12-14 11:30 | NUR ---
DIRECTOR DANCE Km Ordered 1L NS Bolus, continue irrigation of Catheter, draining with yellow output with blood clots.
[2019-12-14] MEDS: IV D5 1/2 NS 1000 ML 1,000 ML IV PRN (13:19)
--- NOTE | 2019-12-14 14:30 | NUR ---
The patient will be discharged today to [facility] [ ; [address] [place] [id number]]. Had been in constant contact today with the patient's , Shalini and Ingrid [ ] from [facility]. Also spoke to Shameka [ ; ] from [facility]. This newspaper reporter called [employer] [ ; Call Transaction# [id number]] and spoke to Amanda at 12:54 p.m. She transferred me to Medical Management and spoke to William Howard at 13:00. He stated that they were not able to authorize [facility] because they have already authorized [facility]. Informed him that [facility] was not able to provide PT which he needs. Did a conference call with William and Shalini so that she can authorize him to drop the authorization for [facility] and transfer it to [facility]. Received a call from Shameka at [facility] that they received the authorization and confirmed that they will have an RN follow the patient up tomorrow morning. His transportation was initially arranged with [employer] but he was very lethargic and will be needing a gurney transportation. Arranged his transportation with [facility]. Updated both Ingrid and his , Shalini, on the discharge. Provided them with a copy of the chart, a list of VA facilities in their area, confirmation of the Request for Auth for [facility], [facility] request from a [facility] [place] [facility] and the Physician's Report.
--- NOTE | 2019-12-14 15:22 | NUR ---
Patient noted with BP 81/51 HR 120, DIGITAL RECRUITER Km made aware wit New Order of 1L NS Bolus x 1.
--- NOTE | 2019-12-14 16:20 | NUR ---
Patient awake and verbally responsive. No signs of distress noted. No SOB. No signs of Pain/discomfort. Patient with episode of Low BP 81/51 P 120, Desmond baer made aware with Order of NS 1L x 1 bolus. Patient with current Vital signs of 93/58 P 117, MD is aware with Order ready to be discharge to [facility]. Called [facility] spoke with Wang and endorsed Accordingly. Patient will go be discharge with Saunders catheter, with output of orange colored output. Given a 5000ml total of Saunders catheter irrigation with output of 5850 ml from continuous Saunders catheter, DESMOND Baer is aware. Discharge instructions given to patient, Removed Wrist band and IV site. Patient was Picked up by 2 EMT via [facility].
--- NOTE | 2019-12-15 15:17 | NUR ---
A call was placed to Shalini Salomon and is aware that the patient's personal belonging will be mailed to her as requested.
--- NOTE | 2019-12-16 10:39 | NUR ---
The patient's prescription from Dr. Sol for Zyperxa and Neurontin faxed to [facility] [address], [place] [address] F:[phone] P:[phone] Atten: Zayra
== END 2019-12-14 16:20 | disposition home health service (06) | DRG 308 ==
LOC: ER 19:17 → TELE3 22:30 → UNDODISIN 11-29 14:50 → MEDSURG3 11-29 16:06 → TELE3 11-29 16:13 → MEDSURG3 12-10 09:45
PROVIDERS: ADMIT Family Medicine; ATTEND Hospitalist
PROC: 3E1K78Z Irrigation of Genitourinary Tract using Irrigating Substance, Via Natural or Artificial Opening (ICD-10-PCS; principal; 2019-12-07)
DX: I48.92 Unspecified atrial flutter (principal); G93.41 Metabolic encephalopathy; F31.64 Bipolar disorder, current episode mixed, severe, with psychotic features; E44.1 Mild protein-calorie malnutrition; N39.0 Urinary tract infection, site not specified; T83.83XA Hemorrhage due to genitourinary prosthetic devices, implants and grafts, initial encounter; Z16.11 Resistance to penicillins; Z16.29 Resistance to other single specified antibiotic; M50.31 Other cervical disc degeneration, high cervical region; E78.5 Hyperlipidemia, unspecified; I27.20 Pulmonary hypertension, unspecified; I48.91 Unspecified atrial fibrillation; E87.5 Hyperkalemia; I11.9 Hypertensive heart disease without heart failure; Y73.8 Miscellaneous gastroenterology and urology devices associated with adverse incidents, not elsewhere classified; Y92.230 Patient room in hospital as the place of occurrence of the external cause; N40.1 Benign prostatic hyperplasia with lower urinary tract symptoms; R33.8 Other retention of urine; B96.20 Unspecified Escherichia coli [E. coli] as the cause of diseases classified elsewhere; B95.2 Enterococcus as the cause of diseases classified elsewhere; R31.0 Gross hematuria; R94.8 Abnormal results of function studies of other organs and systems; M48.02 Spinal stenosis, cervical region; I49.3 Ventricular premature depolarization; E11.649 Type 2 diabetes mellitus with hypoglycemia without coma
CPT/HCPCS: 36415; 70030-TC; 70450; 70496; 71045; 72125; 74018; 83605; 83735; 84100; 85018; 85025; 85730; 87040; 87077; 87086; 93005; 93307; A4217; A4663; C1758; G0378; J0690; J0696; J1815; J2060; J3475; J3490; J7030; J7050; J7060; Q9967